=== PATIENT | female | born 1950 | race Caucasian/White ===

== ENCOUNTER 2020-01-06 14:26 | Outpatient (REF) | payer MEDICARE, SELFPAY | END 2020-01-06 14:27 | disposition home or self-care (01) | LOC: HO.HMGCLDS 14:26 | PROVIDERS: PCP Internal Medicine; Visit Provider Internal Medicine | DX: Z20.828 Contact with and (suspected) exposure to other viral communicable diseases (principal) | CPT/HCPCS: 36415; 87635 ==

== ENCOUNTER 2020-08-04 07:38 | Outpatient (REF) | payer MEDICARE, SELFPAY ==
[2020-08-04 11:55] LABS: Alanine Aminotransferase 37 U/L (0-31); Albumin Level 4.1 g/dL (3.5-5.0); Alkaline Phosphatase 110 U/L (39-117); Anion Gap 13 (12-20); Aspartate Amino Transferase 28 U/L (5-31); Bilirubin Direct 0.4 mg/dL (0.0-0.5); Blood Urea Nitrogen 18 mg/dL (9-16); Calcium 9.9 mg/dL (8.4-10.2); Carbon Dioxide 28 mmol/L (22-29); Chloride 107 mmol/L (96-108); Cholesterol 187 mg/dL; Estimated Glomerular Filt Rate > 60; Glucose Fasting 81 mg/dL (60-99); HDL Cholesterol 76 mg/dL; LDL Cholesterol Calculated 92 mg/dl; Potassium 5.1 mmol/L (3.3-5.1); Sodium 143 mmol/L (135-145); Total Protein 6.8 g/dL (6.5-8.0); Triglycerides 95 mg/dL
[2020-08-04 12:04] LABS: TSH reflex Free T4 1.14 uIU/mL (0.32-4.0)
== END 2020-08-04 07:39 | disposition home or self-care (01) ==
LOC: HO.HMGCLDS 07:38
PROVIDERS: PCP Internal Medicine; Visit Provider Internal Medicine
DX: E03.8 Other specified hypothyroidism (principal); E78.9 Disorder of lipoprotein metabolism, unspecified; I10 Essential (primary) hypertension
CPT/HCPCS: 36415; 80048; 80061; 80076; 84443

== ENCOUNTER 2020-08-25 13:12 | Outpatient (REF) | payer MEDICARE, SELFPAY ==
[2020-08-25 14:28] LABS: Anion Gap 14 (12-20); Carbon Dioxide 26 mmol/L (22-29); Chloride 105 mmol/L (96-108); Potassium 4.8 mmol/L (3.3-5.1); Sodium 140 mmol/L (135-145)
== END 2020-08-25 13:13 | disposition home or self-care (01) ==
LOC: HO.HMGCLDS 13:12
PROVIDERS: PCP Internal Medicine; Visit Provider Internal Medicine
DX: E87.5 Hyperkalemia (principal)
CPT/HCPCS: 36415; 80051

== ENCOUNTER 2021-01-06 07:16 | Outpatient (REF) | payer MEDICARE, SELFPAY ==
[2021-01-06 12:01] LABS: Alanine Aminotransferase 49 U/L (0-31); Albumin Level 3.9 g/dL (3.5-5.0); Alkaline Phosphatase 120 U/L (39-117); Anion Gap 11 (12-20); Aspartate Amino Transferase 37 U/L (5-31); Bilirubin Total 0.7 mg/dL (0.0-1.0); Blood Urea Nitrogen 13 mg/dL (9-16); Calcium 9.3 mg/dL (8.4-10.2); Carbon Dioxide 29 mmol/L (22-29); Chloride 108 mmol/L (96-108); Estimated Glomerular Filt Rate > 60; Glucose Random 88 mg/dL (60-115); Potassium 4.5 mmol/L (3.3-5.1); Sodium 143 mmol/L (135-145); Total Protein 6.5 g/dL (6.5-8.0)
== END 2021-01-06 07:17 | disposition home or self-care (01) ==
LOC: HO.HMGCLDS 07:16
PROVIDERS: PCP Internal Medicine; Visit Provider Internal Medicine
DX: E78.9 Disorder of lipoprotein metabolism, unspecified (principal); E03.8 Other specified hypothyroidism; I10 Essential (primary) hypertension
CPT/HCPCS: 36415; 80053

== ENCOUNTER 2021-05-06 07:33 | Outpatient (REF) | payer MEDICARE, SELFPAY ==
[2021-05-06 11:18] LABS: MANUAL DIFF FLAG NO
[2021-05-06 11:30] LABS: Basophils Percent Auto 0.8 % (0-2); Eosinophils Absolute Auto 0.1 X10*3/uL (0.0-0.4); Eosinophils Percent Auto 2.4 % (0-4); Hematocrit 43.9 % (37.0-47.0); Hemoglobin 14.3 g/dl (12.0-16.0); Imm Gran Abs Auto 0.01 X10*3/uL (0.00-0.03); Imm Gran Pct Auto 0.3 % (0.0-0.4); Lymphocytes Absolute Auto 1.1 X10*3/uL (1.2-4.9); Lymphocytes Percent Auto 29.6 % (20-40); Mean Corpuscular HGB Conc 32.6 g/dl (31.0-35.0); Mean Corpuscular Hemoglobin 30.2 pg (27.0-33.0); Mean Corpuscular Volume 92.6 fL (80.0-98.0); Mean Platelet Volume 11.4 fL (9.4-12.3); Monocytes Absolute Auto 0.4 X10*3/uL (0.1-1.2); Monocytes Percent Auto 9.5 % (2-11); Neutrophils Absolute Auto 2.1 x10*3/uL (2.0-8.3); Neutrophils Percent Auto 57.4 % (45-73); Platelet Count 173 X10*3/uL (160-400); Red Blood Count 4.74 X10*6/uL (4.20-5.50); Red Cell Distribution Width 12.4 % (11.0-16.0); White Blood Count 3.7 X10*3/uL (4.8-10.8)
[2021-05-06 11:52] LABS: Alanine Aminotransferase 42 U/L (0-31); Alkaline Phosphatase 122 U/L (39-117); Anion Gap 11 (12-20); Aspartate Amino Transferase 34 U/L (5-31); Bilirubin Total 0.9 mg/dL (0.0-1.0); Blood Urea Nitrogen 15 mg/dL (9-16); Carbon Dioxide 30 mmol/L (22-29); Chloride 108 mmol/L (96-108); Estimated Glomerular Filt Rate > 60; Glucose Random 90 mg/dL (60-115); Potassium 5.1 mmol/L (3.3-5.1); Sodium 144 mmol/L (135-145); Total Protein 6.8 g/dL (6.5-8.0)
== END 2021-05-06 07:34 | disposition home or self-care (01) ==
LOC: HO.HMGCLDS 07:33
PROVIDERS: Visit Provider Internal Medicine
DX: E03.8 Other specified hypothyroidism (principal); I10 Essential (primary) hypertension; E78.9 Disorder of lipoprotein metabolism, unspecified; R79.89 Other specified abnormal findings of blood chemistry
CPT/HCPCS: 36415; 80053; 85025

== ENCOUNTER 2021-06-28 09:53 | Outpatient (REF) | payer MEDICARE, SELFPAY ==
--- NOTE | ~2021-06-28 | XR_ITS ---
EXAMINATION: XR HAND, RIGHT CLINICAL INFORMATION: Right hand contusion COMPARISON: None TECHNIQUE: PA, lateral, and oblique views of the right hand. FINDINGS: Bone alignment is normal. No definite acute fracture or dislocation is seen. There is a well-corticated soft tissue ossification projecting over the dorsal DIP joint of the second finger probably related to old trauma. There is mild arthritis at the DIP joints with small osteophytes. There is mild arthritis at the first FCI joint. There is mild soft tissue swelling over the dorsal DIP joint of the second finger. XR/XR hand RT min 3V IMPRESSION: No definite acute fracture seen. Mild arthritis at the DIP joints and first FCI joint. Well-corticated soft tissue ossification adjacent to the dorsal DIP joint of the second finger, question related to old trauma. Clinical correlation recommended.
== END 2021-06-28 09:54 | disposition home or self-care (01) ==
LOC: HO.HMGCX 09:53
PROVIDERS: Visit Provider Internal Medicine
DX: S60.221A Contusion of right hand, initial encounter (principal)
CPT/HCPCS: 73130

== ENCOUNTER 2021-07-16 10:00 | Outpatient (RCR) | payer MEDICARE, SELFPAY ==
--- NOTE | 2021-06-30 12:53 | MHC.PT.EP ---
[facility] [place] Office [place] Office [place] Office [address] [phone] F: [phone] F: [phone] F: [phone] F: [phone] Physical Therapy Plan of Care Date of Evaluation: Date of Surgery: n/a Diagnosis: Pain in R arm Assessment: Patient is a 70 year old R handed female who presents with s/s consistent with R shoulder pain as a result of falling on [employer]. She is retired but enjoys being active and traveling. Patient past medical history includes HTN. Current impairments include pain, posture, ROM, strength, activity tolerance and functional mobility. Functional limitations include decreased ability to sleep, lift, carry, reach and dress. Patient is motivated with good rehab potential. Skilled PT will address impairments and functional limitations in order to achieve goals. Frequency and Duration: The patient will be seen 2x/week for 5 weeks Short Term Goals: I with HEP - 2 weeks AROM flexion 120, abd 110 - 3 weeks pain with ADLs and sleep 2/10 max - 3 weeks Fdc Goals: undisturbed sleep - 5 weeks AROM flex/abd 130 or more - 5 weeks ER/IR arc 140 - 5 weeks SPADI 30/130 or better - 5 weeks Treatment Plan: Modalities to reduce pain, spasms and effusion. Manual therapy to restore motion and function. Therapeutic exercise to improve strength and flexibility. Neuromuscular re-education for posture and balance. Therapeutic activities to return to functional activities of daily living. Electronically signed by: Willard Reynaga, PT Please sign and return to therapist. Thank you for your referral.
--- NOTE | 2021-07-16 13:49 | MHC.PT.OD ---
[facility] [place] Office [place] Office [place] Office [address] Merlin Bartholomew [address] [phone] F: [phone] F: [phone] F: [phone] F: [phone] Physical Therapy Daily Note Diagnosis: Pain in R arm Date of Surgery: n/a Date of Evaluation: 06/30/21 Date of Treatment: 07/16/21 Treatments to Date: 6 Cancellations to Date: No Shows to Date: Authorized Visits: Insurance End Date: Precautions/ Contraindications:stitch in R finger ([place] fall) Subjective: Pt notes increased pain today, unknown reason why. Pain Score and Location: 8 Objective Flowsheet: Tests & Measures See IE Exercises pulleys flexion and scaption 4 min each wall slides 12x b/l ER with YTB Table slides flex and scaption 15x each(not today) AA ER x 5 reps pendulums 3 min cane ER and flexion 10x10 s/l ER 1# 30x, abd x 20 reps UT stretct h x 2 reps, sh int rot x 20 ylw, rows x 20 reps 15 lbs, biceps x 20 reps 2 lb STM R UT, deltoid, biceps HP to start, CP to finish Modalities Assessment: 07/16/21: pt has been having difficulty achieving any meaningful progress over the course of skilled PT (6 visits so far) due to significant debilitating pain. She has been having difficulty sleeping, and using R are for most all functional activities. She has not progressed as we had hoped. I educated her significant on plan for PT and possibility that more imaging may be needed if no progress is sustained. At this time, I am requesting further imaging as I suspect a significant rotator cuff injury and or labral injury may be at play here. 07/14/21: pt is having a difficult time progressing. she has intermittent sharp pain without warning. ROM has improved but is painful. The pain limits willingness to perform UE activities. If significance of pain does not improve, we will recommend further imaging to promote optimal management of this patient, as skilled PT does not seem to be resulting in meaningful progress. PT Plan: shoulder impingement - rotator cuff injury rehab Short Term Goals: I with HEP - 2 weeks AROM flexion 120, abd 110 - 3 weeks pain with ADLs and sleep 05/13 max - 3 weeks Acid Bleacher Goals: undisturbed sleep - 5 weeks AROM flex/abd 130 or more - 5 weeks ER/IR arc 140 - 5 weeks SPADI 30/130 or better - 5 weeks Electronically signed by: Willard Reynaga PT
--- NOTE | 2021-12-23 09:55 | MHC.PT.DC ---
[facility] [place] Office [place] Office [place] Office [address] Merlin Bartholomew [address] [phone] F: [phone] F: [phone] F: [phone] F: [phone] Physical Therapy Discharge Report Diagnosis: Pain in R arm Date of Surgery: n/a Date of Evaluation: 06/30/21 Date of Discharge: 08/05/21 Treatments to Date: 6 Cancellations to Date: No Shows to Date: Discharge Status: Improved Function Independent with HEP Discharge Summary: 07/16/21: pt has been having difficulty achieving any meaningful progress over the course of skilled PT (6 visits so far) due to significant debilitating pain. She has been having difficulty sleeping, and using R are for most all functional activities. She has not progressed as we had hoped. I educated her significant on plan for PT and possibility that more imaging may be needed if no progress is sustained. At this time, I am requesting further imaging as I suspect a significant rotator cuff injury and or labral injury may be at play here. 07/14/21: pt is having a difficult time progressing. she has intermittent sharp pain without warning. ROM has improved but is painful. The pain limits willingness to perform UE activities. If significance of pain does not improve, we will recommend further imaging to promote optimal management of this patient, as skilled PT does not seem to be resulting in meaningful progress. Electronically signed by: Willard Reynaga, PT Please sign and return to therapist. Thank you for your referral.
== END 2021-12-23 09:56 | disposition home or self-care (01) ==
LOC: HO.PTCHIC 10:00
PROVIDERS: PCP Internal Medicine; Visit Provider Internal Medicine
DX: M79.601 Pain in right arm (principal)
CPT/HCPCS: 97110; 97140; 97161

== ENCOUNTER 2021-12-28 06:51 | Outpatient (REF) | payer MEDICARE, SELFPAY ==
[2021-12-28 12:04] LABS: Alanine Aminotransferase 56 U/L (0-31); Albumin Level 3.9 g/dL (3.5-5.0); Alkaline Phosphatase 118 U/L (39-117); Anion Gap 14 (12-20); Aspartate Amino Transferase 46 U/L (5-31); Bilirubin Total 0.4 mg/dL (0.0-1.0); Blood Urea Nitrogen 15 mg/dL (9-16); Calcium 9.6 mg/dL (8.4-10.2); Carbon Dioxide 27 mmol/L (22-29); Chloride 108 mmol/L (96-108); Cholesterol 164 mg/dL; Estimated Glomerular Filt Rate > 60; Glucose Fasting 97 mg/dL (60-99); HDL Cholesterol 72 mg/dL; LDL Cholesterol Calculated 80 mg/dl; Potassium 5.2 mmol/L (3.3-5.1); Sodium 144 mmol/L (135-145); Total Protein 6.4 g/dL (6.5-8.0); Triglycerides 62 mg/dL
[2021-12-28 12:11] LABS: TSH reflex Free T4 2.03 uIU/mL (0.32-4.0)
== END 2021-12-28 06:52 | disposition home or self-care (01) ==
LOC: HO.HMGCLDS 06:51
PROVIDERS: PCP Internal Medicine; Visit Provider Internal Medicine
DX: E03.8 Other specified hypothyroidism (principal); E78.9 Disorder of lipoprotein metabolism, unspecified; I10 Essential (primary) hypertension; R79.89 Other specified abnormal findings of blood chemistry
CPT/HCPCS: 36415; 80053; 80061; 84443

== ENCOUNTER 2021-12-30 08:00 | Outpatient (RCR) | payer MEDICARE, SELFPAY | END 2022-02-09 10:18 | disposition home or self-care (01) | LOC: HO.PTCHIC 08:00 | PROVIDERS: Visit Provider Orthopaedic Surgery | DX: S46.011D Strain of muscle(s) and tendon(s) of the rotator cuff of right shoulder, subsequent encounter (principal) | CPT/HCPCS: 97110; 97140; 97162 ==

== ENCOUNTER 2022-01-25 08:55 | Outpatient (REF) | payer MEDICARE, SELFPAY ==
[2022-01-25 11:42] LABS: Alanine Aminotransferase 40 U/L (0-31); Albumin Level 4.1 g/dL (3.5-5.0); Alkaline Phosphatase 131 U/L (39-117); Anion Gap 13 (12-20); Aspartate Amino Transferase 32 U/L (5-31); Bilirubin Total 0.7 mg/dL (0.0-1.0); Blood Urea Nitrogen 15 mg/dL (9-16); Calcium 9.9 mg/dL (8.4-10.2); Carbon Dioxide 29 mmol/L (22-29); Chloride 105 mmol/L (96-108); Estimated Glomerular Filt Rate > 60; Glucose Random 107 mg/dL (60-115); Potassium 4.4 mmol/L (3.3-5.1); Sodium 143 mmol/L (135-145)
== END 2022-01-25 08:56 | disposition home or self-care (01) ==
LOC: HO.HMGCLDS 08:55
PROVIDERS: PCP Internal Medicine; Visit Provider Internal Medicine
DX: E87.5 Hyperkalemia (principal); R79.89 Other specified abnormal findings of blood chemistry; I10 Essential (primary) hypertension
CPT/HCPCS: 36415; 80053

== ENCOUNTER 2022-09-07 07:20 | Outpatient (REF) | payer MEDICARE, SELFPAY ==
[2022-09-07 11:11] LABS: MANUAL DIFF FLAG NO
[2022-09-07 11:28] LABS: Basophils Percent Auto 1.1 % (0-2); Eosinophils Absolute Auto 0.1 X10*3/uL (0.0-0.4); Eosinophils Percent Auto 3.6 % (0-4); Hematocrit 43.6 % (37.0-47.0); Hemoglobin 14.3 g/dl (12.0-16.0); Imm Gran Abs Auto 0.01 X10*3/uL (0.00-0.03); Imm Gran Pct Auto 0.4 % (0.0-0.4); Lymphocytes Percent Auto 33.9 % (20-40); Mean Corpuscular HGB Conc 32.8 g/dl (31.0-35.0); Mean Corpuscular Hemoglobin 30.2 pg (27.0-33.0); Mean Corpuscular Volume 92.2 fL (80.0-98.0); Mean Platelet Volume 11.4 fL (9.4-12.3); Monocytes Absolute Auto 0.3 X10*3/uL (0.1-1.2); Monocytes Percent Auto 9.6 % (2-11); Neutrophils Absolute Auto 1.4 x10*3/uL (2.0-8.3); Neutrophils Percent Auto 51.4 % (45-73); Platelet Count 189 X10*3/uL (160-400); Red Blood Count 4.73 X10*6/uL (4.20-5.50); Red Cell Distribution Width 12.6 % (11.0-16.0); White Blood Count 2.8 X10*3/uL (4.8-10.8)
[2022-09-07 12:02] LABS: Alanine Aminotransferase 32 U/L (0-31); Albumin Level 3.9 g/dL (3.5-5.0); Alkaline Phosphatase 114 U/L (39-117); Anion Gap 10 (12-20); Aspartate Amino Transferase 27 U/L (5-31); Blood Urea Nitrogen 15 mg/dL (9-16); Calcium 9.7 mg/dL (8.4-10.2); Carbon Dioxide 29 mmol/L (22-29); Chloride 109 mmol/L (96-108); Cholesterol 172 mg/dL; Estimated Glomerular Filt Rate > 60; Glucose Fasting 90 mg/dL (60-99); HDL Cholesterol 79 mg/dL; LDL Cholesterol Calculated 78 mg/dl; Potassium 4.9 mmol/L (3.3-5.1); Sodium 143 mmol/L (135-145); TSH reflex Free T4 2.22 uIU/mL (0.32-4.0); Total Protein 6.6 g/dL (6.5-8.0); Triglycerides 77 mg/dL
== END 2022-09-07 07:21 | disposition home or self-care (01) ==
LOC: HO.HMGCLDS 07:20
PROVIDERS: PCP Internal Medicine; Visit Provider Internal Medicine
DX: E03.8 Other specified hypothyroidism (principal); I10 Essential (primary) hypertension; E78.9 Disorder of lipoprotein metabolism, unspecified
CPT/HCPCS: 36415; 80053; 80061; 84443; 85025

== ENCOUNTER 2022-10-11 08:38 | Outpatient (AMB) | payer MEDICARE, SELFPAY ==
--- NOTE | 2022-10-11 08:39 | MHC.PC.OV ---
Vital Signs 10/11/22 08:40 Height 5 ft 2 in Weight 184 lb 8 oz BMI 33.7 BP 136/88 Blood Pressure Location Rt brachial Position Sitting Pulse 73 Pulse Source Pulse Oximeter Pulse Oximetry (%) 98 Oxygen Delivery Method Room Air Intake Visit Reasons: 4m follow up labs Allergies penicillin V Allergy (Unknown, Verified 10/11/22 08:41) rash hives swelling Penicillins Allergy (Unknown, Verified 10/11/22 08:41) rash hives swelling Sulfa (Sulfonamide Antibiotics) Allergy (Unknown, Verified 10/11/22 08:41) unknown-childhood Erythromycin Adverse Reaction (Unknown, Uncoded 07/08/22 08:21) GI upset Medication List - Last Reconciled 10/11/22 by Kalin Wyatt MD atorvastatin 20 mg PO BEDTIME 90 days calcium carbonate 600 mg PO DAILY latanoprost 0.005% 1 drp ophthalmic (eye) QPM levothyroxine 75 mcg PO QAM lisinopril 40 mg PO DAILY 90 days timolol 0.5% (Betimol) 1 drp ophthalmic-Right DAILY Tobacco use date assessed: 10/11/22 Fall risk assessment: No Falls in past year Last assessed Fall Risk: 10/11/22 Dental Screening Dental Screen Date: 10/11/22 Did you have a dental visit in the last 12 months?: Yes Did you have a dental problem in the last 6 months where you did not have access to dental care?: No Was dental information given to patient?: No HPI 4m follow up labs HPI Details Patient is 71-year-old female came in today for a follow-up appointment Patient is on atorvastatin 20 mg Levothyroxine 75 mg Lisinopril 40 mg Labs done recently reviewed her liver enzymes are stable TSH is within normal limit blood pressure is stable I have noticed that her white count is reducing it was in 3 range last time and now it is 2.8, discussed with the patient I have placed a referral to Hematology for further evaluation She also have osteoarthritis in her right knee but manageable with Advil as needed COVID vaccine was August 12 Has appointment for Medicare wellness in January, patient comes every 4 months for follow-up appointment. [facility] Medical History Hypertension, essential Lipid disorder Other specified hypothyroidism Surgical History History of appendectomy Family History Father Pancreatic cancer Myocardial infarction Mother Alzheimer's disease Son Obesity Daughter Migraine Maternal Grandmother No problems noted. Maternal Grandfather No problems noted. Paternal Grandfather No problems noted. Paternal Grandmother No problems noted. Sister No problems noted. Social History Housing: House Alcohol intake: current Alcohol intake frequency: a few times a month Alcohol type: wine Patient Tobacco Use Status: Never used Tobacco e-Cigarette/Vaping Use: Never Used Second Hand Smoke Exposure: No service: No Current occupational status: retired Cognitive needs: No Hearing needs: No Vision needs: Yes Questionnaire Thrive Questionnaire Date Thrive assessed: 05/18/21 AUDIT C Alcohol Use Questionnaire (AUDIT-C) 1. How often do you have a drink containing alcohol?: Monthly or less 2. How many drinks containing alcohol do you have on a typical day when you are drinking?: 1 or 2 3. How often do you have six or more drinks on one occasion?: Never Total Score: 1 Score Reviewed/Action Taken: Yes CECELIA-7 AMB Questionnaire CECELIA-7 Date CECELIA - 7 assessed: 05/18/21 Source: Developed by Drs. Arthur Hassan, Nadia Peralta, Mikey Howard and colleagues, with an educational hannah from [employer]. Review of Systems Const Denies chills and Denies fever(s) ENT Denies epistaxis and Denies nasal discharge Card Denies chest pain Resp Denies chest congestion, Denies cough and Denies hemoptysis GI Denies diarrhea and Denies nausea Skin/Breast Denies rash Neuro Reports no additional complaints Psych Reports no additional complaints Endo Reports no additional complaints Physical exam (Primary Care) Vital Signs: Last Vital Signs Pulse 73 10/11/22 08:40 BP 136/88 10/11/22 08:40 Pulse Ox 98 10/11/22 08:40 Oxygen Delivery Method Room Air 10/11/22 08:40 BMI result Body Mass Index 33.7 Tobacco/Smoking Status: Tobacco use Status Tobacco use date assessed 10/11/22 10/11/22 08:44 Patient Tobacco Use Status Never used Tobacco 10/11/22 08:44 e-Cigarette/Vaping Use Never Used 10/11/22 08:44 Thrive Assessment: Date of Thrive Assessment Date Thrive assessed 05/18/21 10/11/22 08:44 Const General: cooperative, comfortable and no acute distress Orientation/consciousness: patient oriented x3 HENMT Head: Yes normocephalic Eyes General: appearance normal, both eyes and all related structures Neck Neck: Yes supple Resp Effort & Inspection: normal respiratory effort, no cough and no stridor Cardio Rhythm: regular rhythm Heart sounds: S1 normal heart sound present and S2 normal heart sound present Skin General skin exam: turgor normal Neuro General: patient oriented x3, tone normal and moves all extremities Extrem Right lower extremity: no edema Left lower extremity: no edema Assessment and Plan Assessment & Plan (1) Hypertension, essential: Code(s): I10 - Essential (primary) hypertension (2) Lipid disorder: Code(s): E78.9 - Disorder of lipoprotein metabolism, unspecified (3) Other specified hypothyroidism: Code(s): E03.8 - Other specified hypothyroidism (4) LFT elevation: Code(s): R79.89 - Other specified abnormal findings of blood chemistry (5) Osteoarthritis of right knee: Code(s): M17.11 - Unilateral primary osteoarthritis, right knee (6) Neutropenia: Code(s): D70.9 - Neutropenia, unspecified Plan Patient is 71-year-old female came in today for a follow-up appointment Patient is on atorvastatin 20 mg Levothyroxine 75 mg Lisinopril 40 mg Labs done recently reviewed her liver enzymes are stable TSH is within normal limit blood pressure is stable I have noticed that her white count is reducing it was in 3 range last time and now it is 2.8, discussed with the patient I have placed a referral to Hematology for further evaluation She also have osteoarthritis in her right knee but manageable with Advil as needed COVID vaccine was August 12 Has appointment for Medicare wellness in January, patient comes every 4 months for follow-up appointment. Orders: Referrals Hematology & Oncology Referral D70.9 - Neutropenia, unspecified Coding Level of Care Code Est Pt Level 4 (32046) Diagnoses Hypertension, essential I10 Lipid disorder E78.9 Other specified hypothyroidism E03.8 LFT elevation R79.89 Osteoarthritis of right knee M17.11 Neutropenia D70.9
[2022-10-11 08:40] VITALS: BP 136/88; PULSE 73; O2SAT 98; BMI 33.7
== END 2022-10-11 09:04 | disposition home or self-care (01) ==
PROVIDERS: Visit Provider Internal Medicine
DX: I10 Essential (primary) hypertension (principal); E03.8 Other specified hypothyroidism; D70.9 Neutropenia, unspecified; E78.9 Disorder of lipoprotein metabolism, unspecified; R79.89 Other specified abnormal findings of blood chemistry; M17.11 Unilateral primary osteoarthritis, right knee
CPT/HCPCS: 99214

== ENCOUNTER → 2022-11-07 08:46 | Outpatient (BNV) | payer MEDICARE, SELFPAY | PROVIDERS: PCP Internal Medicine; Referring Provider Internal Medicine; Visit Provider Internal Medicine Medical Oncology | DX: D70.9 Neutropenia, unspecified (principal) | CPT/HCPCS: 99204; 99213 ==

== ENCOUNTER 2022-12-13 08:05 | Outpatient (AMB) | payer MEDICARE, SELFPAY ==
--- NOTE | 2022-12-13 08:06 | AM.OFFWIN_ITS ---
Intake Vital Signs 12/13/22 08:08 Weight 187 lb BP 120/90 H Blood Pressure Location Lt brachial Position Sitting Pulse 64 Pulse Source Pulse Oximeter Temp 98.2 F Temp Source Temporal Artery Scan Pulse Oximetry (%) 98 Oxygen Delivery Method Room Air Intake Visit Reasons: EP COVID + 12/01 -Ear blockage (masked) Intake Note: Patient here because she was positive for covid and did not really have symptoms and is now testing negative but now has left ear pain. Patient Tobacco Use Status: Never used Tobacco Allergies penicillin V Allergy (Unknown, Verified 12/13/22 08:31) rash hives swelling Penicillins Allergy (Unknown, Verified 12/13/22 08:31) rash hives swelling Sulfa (Sulfonamide Antibiotics) Allergy (Unknown, Verified 12/13/22 08:31) unknown-childhood Erythromycin Adverse Reaction (Unknown, Uncoded 12/13/22 08:31) GI upset Medication List - Last Reconciled 12/13/22 by Benja Mills MD atorvastatin 20 mg PO BEDTIME 90 days calcium carbonate 600 mg PO DAILY latanoprost 0.005% 1 drp ophthalmic (eye) QPM levothyroxine 75 mcg PO QAM lisinopril 40 mg PO DAILY 90 days timolol 0.5% (Betimol) 1 drp ophthalmic-Right DAILY Do you need a note to return to daycare/school/sports/work: No HPI EP COVID + 12/01 -Ear blockage (masked) HPI Details 71-year-old female presents to the [facility] e a sick visit. Patient tested positive for COVID 2 weeks ago. Patient reports she has been having a persistent fullness in the left ear with intermittent pain. Other symptoms of cough, wheezing and sore throat have since resolved. [facility] Medical History Hypertension, essential Lipid disorder Other specified hypothyroidism Surgical History History of appendectomy Family History Father Pancreatic cancer Myocardial infarction Mother Alzheimer's disease Son Obesity Daughter Migraine Maternal Grandmother No problems noted. Maternal Grandfather No problems noted. Paternal Grandfather No problems noted. Paternal Grandmother No problems noted. Sister No problems noted. Social History (Updated 11/07/22 @ 08:51 by Jet Dejesus) Housing: House Alcohol intake: current Alcohol intake frequency: a few times a month Alcohol type: wine Patient Tobacco Use Status: Never used Tobacco e-Cigarette/Vaping Use: Never Used Second Hand Smoke Exposure: No service: No Current occupational status: retired Cognitive needs: No Hearing needs: No Vision needs: Yes Physical Exam Vital Signs: Last Vital Signs Temp 98.2 F 12/13/22 08:08 Pulse 64 12/13/22 08:08 BP 120/90 H 12/13/22 08:08 Pulse Ox 98 12/13/22 08:08 Oxygen Delivery Method Room Air 12/13/22 08:08 Const General: cooperative and healthy appearing Nutritional Appearance: well nourished Orientation/consciousness: patient oriented x3 Limitations: no limitations HEENT Head: Yes normal to inspection Eyes General: appearance normal, both eyes and all related structures Neck Neck: Yes normal visual inspection Chest Chest palpation & inspection: normal palpation of entire chest wall Resp Effort & Inspection: normal respiratory effort Neuro General: patient oriented x3 Assessment & Plan Assessment & Plan (1) Viral upper respiratory tract infection: Code(s): J06.9 - Acute upper respiratory infection, unspecified Plan: Self-limiting illness. No antibiotics needed. Symptoms will resolve on their own. Reassurance Coding Level of Care Code Est Pt Level 3 (67843) Diagnoses Viral upper respiratory tract infection J06.9
[2022-12-13 08:08] VITALS: BP 120/90; PULSE 64; TEMP 36.8; O2SAT 98
== END 2022-12-13 08:57 | disposition home or self-care (01) ==
PROVIDERS: PCP Internal Medicine; Visit Provider Internal Medicine
DX: J06.9 Acute upper respiratory infection, unspecified (principal)
CPT/HCPCS: 99213

== ENCOUNTER 2022-12-28 09:59 | Outpatient (AMB) | payer MEDICARE, SELFPAY ==
[2022-12-28 10:05] VITALS: BP 170/88; BP 172/92; PULSE 68; O2SAT 98
--- NOTE | 2022-12-28 10:05 | MHC.PC.OV ---
Vital Signs 12/28/22 10:05 12/28/22 10:05 12/28/22 11:04 Height 5 ft 3 in BMI Reason not done Patient refused/unable BP 172/92 H 170/88 H 158/80 H Blood Pressure Location Rt brachial Lt brachial Position Sitting Sitting Pulse 68 Pulse Source Pulse Oximeter Pulse Oximetry (%) 98 Oxygen Delivery Method Room Air Intake Visit Reasons: Ear Blockage Allergies penicillin V Allergy (Unknown, Verified 12/28/22 10:05) rash hives swelling Penicillins Allergy (Unknown, Verified 12/28/22 10:05) rash hives swelling Sulfa (Sulfonamide Antibiotics) Allergy (Unknown, Verified 12/28/22 10:05) unknown-childhood Erythromycin Adverse Reaction (Unknown, Uncoded 12/13/22 08:31) GI upset Medication List - Last Reconciled 12/28/22 by Kalin Wyatt MD atorvastatin 20 mg PO BEDTIME 90 days calcium carbonate 600 mg PO DAILY latanoprost 0.005% 1 drp ophthalmic (eye) QPM levothyroxine 75 mcg PO QAM lisinopril 40 mg PO DAILY 90 days timolol 0.5% (Betimol) 1 drp ophthalmic-Right DAILY Tobacco use date assessed: 12/28/22 Fall risk assessment: No Falls in past year Last assessed Fall Risk: 12/28/22 Dental Screening Dental Screen Date: 12/28/22 Did you have a dental visit in the last 12 months?: Yes Did you have a dental problem in the last 6 months where you did not have access to dental care?: No Was dental information given to patient?: Patient has dentist HPI Ear Blockage HPI Details Patient is 72-year-old female came in today to be evaluated for feeling of blockage in left ear Patient developed COVID infection early this month she was evaluated in walk-in clinic on December 13 for similar problem But no medication was given. She is feeling fine otherwise and is walking 3 miles every day. Her blood pressure is elevated I would note is 170/88 Currently patient is on lisinopril 40 mg, I have sent amlodipine 5 mg she is to start taking that if her blood pressure continued to be high. I would recommend she start monitoring her blood pressure at home. Meanwhile she is to take Claritin-D for 7 days to see if it helps with her ear blockage On examination her ear exam is benign. There is no signs of inflammation there is no wax in the ear. Her other medications are atorvastatin 20 mg and levothyroxine 75 mg for hypothyroidism Patient has appointment with me in February she is to do labs fasting before she comes. Past family history and social history reviewed [facility] Medical History Hypertension, essential Lipid disorder Other specified hypothyroidism Surgical History History of appendectomy Family History Father Pancreatic cancer Myocardial infarction Mother Alzheimer's disease Son Obesity Daughter Migraine Maternal Grandmother No problems noted. Maternal Grandfather No problems noted. Paternal Grandfather No problems noted. Paternal Grandmother No problems noted. Sister No problems noted. Social History (Updated 11/07/22 @ 08:51 by Jet Dejesus) Housing: House Alcohol intake: current Alcohol intake frequency: a few times a month Alcohol type: wine Patient Tobacco Use Status: Never used Tobacco e-Cigarette/Vaping Use: Never Used Second Hand Smoke Exposure: No service: No Current occupational status: retired Cognitive needs: No Hearing needs: No Vision needs: Yes Questionnaire Thrive Questionnaire Date Thrive assessed: 05/18/21 AUDIT C Alcohol Use Questionnaire (AUDIT-C) 1. How often do you have a drink containing alcohol?: Never 3. How often do you have six or more drinks on one occasion?: Never Total Score: 0 Score Reviewed/Action Taken: Yes CECELIA-7 AMB Questionnaire CECELIA-7 Date CECELIA - 7 assessed: 05/18/21 Source: Developed by Drs. Arthur Hassan, Nadia Peralta, Mikey Howard and colleagues, with an educational hannah from [employer]. Review of Systems Const Denies chills and Denies fever(s) ENT Denies epistaxis and Denies nasal discharge Card Denies chest pain Resp Denies chest congestion, Denies cough and Denies hemoptysis GI Denies diarrhea and Denies nausea Skin/Breast Denies rash Neuro Reports no additional complaints Psych Reports no additional complaints Endo Reports no additional complaints Physical exam (Primary Care) Vital Signs: Last Vital Signs Pulse 68 12/28/22 10:05 BP 170/88 H 12/28/22 10:05 Pulse Ox 98 12/28/22 10:05 Oxygen Delivery Method Room Air 12/28/22 10:05 Tobacco/Smoking Status: Tobacco use Status Tobacco use date assessed 12/28/22 12/28/22 10:07 Patient Tobacco Use Status Never used Tobacco 12/28/22 10:07 e-Cigarette/Vaping Use Never Used 12/28/22 10:07 Thrive Assessment: Date of Thrive Assessment Date Thrive assessed 05/18/21 12/28/22 10:07 Const General: cooperative, comfortable and no acute distress Orientation/consciousness: patient oriented x3 HENMT Other: Both ears within normal limit light reflex intact no signs of infection inflammation Head: Yes normocephalic Eyes General: appearance normal, both eyes and all related structures Neck Neck: Yes supple Resp Effort & Inspection: normal respiratory effort, no cough and no stridor Cardio Rhythm: regular rhythm Heart sounds: S1 normal heart sound present and S2 normal heart sound present Skin General skin exam: turgor normal Neuro General: patient oriented x3, tone normal and moves all extremities Extrem Right lower extremity: no edema Left lower extremity: no edema Assessment and Plan Assessment & Plan (1) Hypertension, essential: Code(s): I10 - Essential (primary) hypertension (2) Lipid disorder: Code(s): E78.9 - Disorder of lipoprotein metabolism, unspecified (3) Other specified hypothyroidism: Code(s): E03.8 - Other specified hypothyroidism (4) LFT elevation: Code(s): R79.89 - Other specified abnormal findings of blood chemistry (5) Neutropenia: Code(s): D70.9 - Neutropenia, unspecified Qualifiers: Neutropenia type: other Qualified Code(s): D70.8 - Other neutropenia (6) Post-COVID syndrome: Code(s): U09.9 - Post COVID-19 condition, unspecified Plan Patient is 72-year-old female came in today to be evaluated for feeling of blockage in left ear Patient developed COVID infection early this month she was evaluated in walk-in clinic on December 13 for similar problem But no medication was given. She is feeling fine otherwise and is walking 3 miles every day. Her blood pressure is elevated I would note is 170/88 Currently patient is on lisinopril 40 mg, I have sent amlodipine 5 mg she is to start taking that if her blood pressure continued to be high. I would recommend she start monitoring her blood pressure at home. Meanwhile she is to take Claritin-D for 7 days to see if it helps with her ear blockage On examination her ear exam is benign. There is no signs of inflammation there is no wax in the ear. Her other medications are atorvastatin 20 mg and levothyroxine 75 mg for hypothyroidism Neutropenia: Patient is seeing hematology for the management. Patient has appointment with me in February she is to do labs fasting before she comes. Orders: Orders Complete Blood Count Auto Diff Today D70.9 - Neutropenia, unspecified, E03.8 - Other specified hypothyroidism, E78.9 - Disorder of lipoprotein metabolism, unspecified, I10 - Essential (primary) hypertension, R79.89 - Other specified abnormal findings of blood chemistry TSH reflex Free T4 Today D70.9 - Neutropenia, unspecified, E03.8 - Other specified hypothyroidism, E78.9 - Disorder of lipoprotein metabolism, unspecified, I10 - Essential (primary) hypertension, R79.89 - Other specified abnormal findings of blood chemistry Comprehensive [place]. Panel Fast Today D70.9 - Neutropenia, unspecified, E03.8 - Other specified hypothyroidism, E78.9 - Disorder of lipoprotein metabolism, unspecified, I10 - Essential (primary) hypertension, R79.89 - Other specified abnormal findings of blood chemistry Lipid Panel Today D70.9 - Neutropenia, unspecified, E03.8 - Other specified hypothyroidism, E78.9 - Disorder of lipoprotein metabolism, unspecified, I10 - Essential (primary) hypertension, R79.89 - Other specified abnormal findings of blood chemistry Medications: New amlodipine 5 mg PO DAILY 30 tabs 0RF Coding Level of Care Code Est Pt Level 4 (52660) Diagnoses Hypertension, essential I10 Lipid disorder E78.9 Other specified hypothyroidism E03.8 LFT elevation R79.89 Other neutropenia D70.8 Neutropenia type: other Post-COVID syndrome U09.9
[2022-12-28 11:04] VITALS: BP 158/80
== END 2022-12-28 12:08 | disposition home or self-care (01) ==
PROVIDERS: PCP Internal Medicine; Visit Provider Internal Medicine
DX: I10 Essential (primary) hypertension (principal); E03.8 Other specified hypothyroidism; D70.8 Other neutropenia; E78.9 Disorder of lipoprotein metabolism, unspecified; R79.89 Other specified abnormal findings of blood chemistry; U09.9 Post COVID-19 condition, unspecified
CPT/HCPCS: 99214

== ENCOUNTER 2023-01-26 11:06 | Outpatient (AMB) | payer MEDICARE, SELFPAY ==
[2023-01-26 11:24] VITALS: BP 120/72; PULSE 66; TEMP 36.6; O2SAT 96; BMI 32.8
--- NOTE | 2023-01-26 11:24 | MHC.OFFWIV ---
Intake Vital Signs 01/26/23 11:24 Height 5 ft 3 in Weight 185 lb BMI 32.8 BP 120/72 Blood Pressure Location Lt brachial Position Sitting Pulse 66 Pulse Source Pulse Oximeter Temp 97.8 F Temp Source Temporal Artery Scan Pulse Oximetry (%) 96 Oxygen Delivery Method Room Air Intake Visit Reasons: EP, left ear pain not getting better Intake Note: pt is here today for left ear pain Patient Tobacco Use Status: Never used Tobacco Allergies penicillin V Allergy (Unknown, Verified 01/26/23 11:25) rash hives swelling Penicillins Allergy (Unknown, Verified 01/26/23 11:25) rash hives swelling Sulfa (Sulfonamide Antibiotics) Allergy (Unknown, Verified 01/26/23 11:25) unknown-childhood Erythromycin Adverse Reaction (Unknown, Uncoded 01/26/23 11:25) GI upset Do you need a note to return to daycare/school/sports/work: Yes HPI HPI Comments History of Present Illness Details 72-year-old female who presents with middle ear pain. Patient has been dealing with a ear effusion for several months now. She has tried Claritin-D without much success. [facility] Medical History Hypertension, essential Lipid disorder Other specified hypothyroidism Surgical History History of appendectomy Family History Father Pancreatic cancer Myocardial infarction Mother Alzheimer's disease Son Obesity Daughter Migraine Maternal Grandmother No problems noted. Maternal Grandfather No problems noted. Paternal Grandfather No problems noted. Paternal Grandmother No problems noted. Sister No problems noted. Social History (Updated 11/07/22 @ 08:51 by Jet Dejesus) Housing: House Alcohol intake: current Alcohol intake frequency: a few times a month Alcohol type: wine Patient Tobacco Use Status: Never used Tobacco e-Cigarette/Vaping Use: Never Used Second Hand Smoke Exposure: No service: No Current occupational status: retired Cognitive needs: No Hearing needs: No Vision needs: Yes Review of Systems ENT Reports otalgia Physical Exam Vital Signs: Last Vital Signs Temp 97.8 F 01/26/23 11:24 Pulse 66 01/26/23 11:24 BP 120/72 10/26/23 11:24 Pulse Ox 96 01/26/23 11:24 Oxygen Delivery Method Room Air 01/26/23 11:24 BMI result Body Mass Index 32.8 Const General: cooperative, healthy appearing, no acute distress and alert Orientation/consciousness: patient oriented x3 Limitations: no limitations HEENT Other: Left ear with effusion no signs of infection Head: Yes normal to inspection Ears: hearing grossly normal bilaterally General nose exam: Normal external nose present Resp Effort & Inspection: normal respiratory effort and able to speak in complete sentences Cardio Rate: regular rate Skin General skin exam: no rashes or lesions noted Neuro General: patient oriented x3 Extrem General: Yes normal to inspection Assessment & Plan Assessment & Plan (1) Eustachian tube dysfunction: Code(s): H69.90 - Unspecified Eustachian tube disorder, unspecified ear Qualifiers: Laterality: left Qualified Code(s): H69.92 - Unspecified Eustachian tube disorder, left ear Plan: VSS. Exam notable for effusion left ear. Recommend symptomatic treatment with Zyrtec and prednisone as well as eustachian tube insufflation maneuvers. If these do not work recommended following up with ENT Discharge instructions, follow up and treatment are discussed with patient in my usual fashion. Alternatives in treatment are also discussed. The patient will return for worsening symptoms or as needed. Advised that any labs/imaging ordered will be followed up on and contact made if further treatment needed. Counseled that patient's condition may require further evaluation and/or treatment. Symptoms of concern for worsening disorder discussed in detail in my customary manner. Patient does verbalize understanding of the plan, there are no apparent barriers to communication. The patient is given the opportunity to ask questions and have them answered to his/her satisfaction Medications: New prednisone 50 mg PO DAILY 5 days 5 tabs 0RF Coding Level of Care Code Est Pt Level 3 (41563) Diagnoses Dysfunction of left eustachian tube H69.92 Laterality: left
== END 2023-01-26 12:14 | disposition home or self-care (01) ==
PROVIDERS: PCP Internal Medicine; Visit Provider Physician Assistant
DX: H69.92 Unspecified Eustachian tube disorder, left ear (principal)
CPT/HCPCS: 99213

== ENCOUNTER 2023-01-27 07:10 | Outpatient (REF) | payer MEDICARE, SELFPAY ==
[2023-01-27 11:30] LABS: MANUAL DIFF FLAG NO
[2023-01-27 11:58] LABS: Basophils Percent Auto 1.1 % (0-2); Eosinophils Absolute Auto 0.1 X10*3/uL (0.0-0.4); Eosinophils Percent Auto 2.8 % (0-4); Hematocrit 42.3 % (37.0-47.0); Hemoglobin 13.9 g/dl (12.0-16.0); Imm Gran Abs Auto 0.01 X10*3/uL (0.00-0.03); Imm Gran Pct Auto 0.3 % (0.0-0.4); Lymphocytes Absolute Auto 1.1 X10*3/uL (1.2-4.9); Lymphocytes Percent Auto 30.8 % (20-40); Mean Corpuscular HGB Conc 32.9 g/dl (31.0-35.0); Mean Corpuscular Hemoglobin 30.4 pg (27.0-33.0); Mean Corpuscular Volume 92.6 fL (80.0-98.0); Mean Platelet Volume 11.2 fL (9.4-12.3); Monocytes Absolute Auto 0.3 X10*3/uL (0.1-1.2); Monocytes Percent Auto 9.1 % (2-11); Neutrophils Percent Auto 55.9 % (45-73); Platelet Count 184 X10*3/uL (160-400); Red Blood Count 4.57 X10*6/uL (4.20-5.50); Red Cell Distribution Width 12.5 % (11.0-16.0); White Blood Count 3.5 X10*3/uL (4.8-10.8)
[2023-01-27 12:28] LABS: Alanine Aminotransferase 35 U/L (0-31); Albumin Level 3.9 g/dL (3.5-5.0); Alkaline Phosphatase 104 U/L (39-117); Anion Gap 13 (12-20); Aspartate Amino Transferase 32 U/L (5-31); Bilirubin Total 0.8 mg/dL (0.0-1.0); Blood Urea Nitrogen 18 mg/dL (9-16); Calcium 9.9 mg/dL (8.4-10.2); Carbon Dioxide 26 mmol/L (22-29); Chloride 107 mmol/L (96-108); Cholesterol 161 mg/dL (<200); Estimated Glomerular Filt Rate > 60; Glucose Fasting 89 mg/dL (60-99); HDL Cholesterol 74 mg/dL (>40); LDL Cholesterol Calculated 72 mg/dL (<100); Potassium 4.8 mmol/L (3.3-5.1); Sodium 141 mmol/L (135-145); TSH reflex Free T4 2.09 uIU/mL (0.32-4.0); Total Protein 6.9 g/dL (6.5-8.0); Triglycerides 75 mg/dL (<150)
== END 2023-01-27 07:11 | disposition home or self-care (01) ==
LOC: HO.HMGCLDS 07:10
PROVIDERS: Absent Provider Internal Medicine Medical Oncology; PCP Internal Medicine; Visit Provider Internal Medicine
DX: I10 Essential (primary) hypertension (principal); E78.9 Disorder of lipoprotein metabolism, unspecified; E03.8 Other specified hypothyroidism; R79.89 Other specified abnormal findings of blood chemistry; D70.9 Neutropenia, unspecified
CPT/HCPCS: 36415; 80053; 80061; 84443; 85025

== ENCOUNTER 2023-02-01 12:41 | Outpatient (AMB) | payer MEDICARE, SELFPAY ==
--- NOTE | 2023-02-01 12:44 | MHC.OFFVIS ---
Intake Vital Signs 02/01/23 12:46 Height 5 ft 3 in Weight 186 lb 8.177 oz BMI 33.0 BP 132/76 Blood Pressure Location Rt brachial Position Sitting Pulse 65 Pulse Source Pulse Oximeter Temp 97.4 F Temp Source Skin Pulse Oximetry (%) 98 Intake Visit Reasons: + EVER Intake Note: New pt presents today for consult. Referred by Dr Frey for +EVER Gas Manager Required: No Accompanied by: Self / Same As Patient Allergies penicillin V Allergy (Unknown, Verified 02/01/23 12:54) rash hives swelling Penicillins Allergy (Unknown, Verified 02/01/23 12:54) rash hives swelling Sulfa (Sulfonamide Antibiotics) Allergy (Unknown, Verified 02/01/23 12:54) unknown-childhood Erythromycin Adverse Reaction (Unknown, Uncoded 02/01/23 12:54) GI upset Medication List - Last Reconciled 02/01/23 by Alisson Jones MD amlodipine 5 mg PO DAILY PRN atorvastatin 20 mg PO BEDTIME 90 days calcium carbonate 600 mg PO DAILY latanoprost 0.005% 1 drp ophthalmic (eye) QPM levothyroxine 75 mcg PO QAM lisinopril 40 mg PO DAILY 90 days timolol maleate 0.5% drps ophthalmic (eye) HPI HPI Comments History of Present Illness Details This is a 72-year-old female who is referred by Dr. Frey for evaluation of a positive EVER. She was referred to Dr. Frey for evaluation of leukopenia. Patient is unaware of any family history of an autoimmune rheumatic disease. She denies any fevers, weight loss, skin rashes. States that she gets bilateral knee pain, worse on the right. Worse with walking. Occasionally she would take Motrin. With relief. She denies any history of DVT/PE. Denies sicca symptoms. Denies Raynaud's. Recently she has been having left ear fullness. She went to 3 different walk-in clinics. She was prescribed different medications including prednisone, Zyrtec and Claritin. All without relief. [facility] Medical History (Updated 02/01/23 @ 13:27 by Alisson Jones MD) Lipid disorder Hypertension, essential Other specified hypothyroidism Surgical History History of appendectomy Family History Father Pancreatic cancer Myocardial infarction Mother Alzheimer's disease Son Obesity Daughter Migraine Maternal Grandmother No problems noted. Maternal Grandfather No problems noted. Paternal Grandfather No problems noted. Paternal Grandmother No problems noted. Sister No problems noted. 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 Cognitive needs: No Hearing needs: No Vision needs: Yes Female Reproductive History Menstrual Total pregnancies: 2 Number of Living Children: 0 Review of Systems Const Denies fatigue, Denies fever(s) and Denies weight loss Eyes Denies dry eyes ENT Denies dry mouth and Reports otalgia Musc Reports arthralgias and Denies joint swelling Skin/Breast Denies rash Endo Denies fatigue Physical Exam Vital Signs: Last Vital Signs Temp 97.4 F 02/01/23 12:46 Pulse 65 02/01/23 12:46 BP 132/76 02/01/23 12:46 Pulse Ox 98 02/01/23 12:46 BMI result Body Mass Index 33.0 Const General: cooperative, healthy appearing and comfortable Nutritional Appearance: obese Orientation/consciousness: patient oriented x3 Limitations: no limitations HEENT Head: Yes normocephalic and Yes atraumatic Resp Effort & Inspection: normal respiratory effort and able to speak in complete sentences Auscultation: clear to auscultation bilaterally Cardio Rate: regular rate Rhythm: regular rhythm GI Inspection: No distended Palpation (GI): Soft to palpation Skin General skin exam: no rashes or lesions noted Neuro General: patient oriented x3 Extrem Other: Osteoarthritic changes of both hands with no active synovitis Normal nailfold capillaroscopy Assessment & Plan Assessment & Plan (1) EVER positive: Code(s): R76.8 - Other specified abnormal immunological findings in serum Plan: This is a 72-year-old female who was referred by Dr. rFey for evaluation of a positive EVER 1-12 80 mitotic spindle pattern and 1-640 fine speckled pattern. This was in the context of chronic leukopenia. Patient also has history of transaminitis chronically. States that she had a liver ultrasound years ago which showed fatty liver. Upon evaluation there are no obvious symptoms of an autoimmune rheumatic disease, however Given significantly elevated EVER, chronic leukopenia and transaminitis. I suggested ordering comprehensive serology to screen for underlying autoimmune disease such as SLE, Sjogren's, autoimmune liver disease and autoimmune thyroid disease. Patient states that she feels well right now and will think about getting those labs done. I asked patient to make a follow-up visit if she decides to get the blood work done Plan I spent 46 minutes reviewing patient's chart, evaluating patient, ordering diagnostic workup, counseling patient and documenting in the chart Orders: Orders Comprehensive Met. Panel Today M32.9 - Systemic lupus erythematosus, unspecified Erythrocyte Sedimentation Rate Today M32.9 - Systemic lupus erythematosus, unspecified Anti Extractable Nuclear Ag Today M32.9 - Systemic lupus erythematosus, unspecified Complement C3 Today M32.9 - Systemic lupus erythematosus, unspecified Complement C4 Today M32.9 - Systemic lupus erythematosus, unspecified Protein Creatinine Ratio, Ur Today M32.9 - Systemic lupus erythematosus, unspecified Cyclic Citrullinated Peptide Today M25.511 - Pain in right shoulder Liver Kidney Microsomal Ab Today R79.89 - Other specified abnormal findings of blood chemistry Mitochondrial Antibody Today R79.89 - Other specified abnormal findings of blood chemistry Smooth Muscle Antibody Today R79.89 - Other specified abnormal findings of blood chemistry Thyroglobulin Antibodies Today E03.9 - Hypothyroidism, unspecified Complete Blood Count Auto Diff Today M32.9 - Systemic lupus erythematosus, unspecified C Reactive Protein Today M32.9 - Systemic lupus erythematosus, unspecified Anti DNA DS Antibody Today M32.9 - Systemic lupus erythematosus, unspecified Sjogren's Antibodies Today M32.9 - Systemic lupus erythematosus, unspecified UA w Microscopic Today M32.9 - Systemic lupus erythematosus, unspecified Thyroid Peroxidase Antibodies Today E03.9 - Hypothyroidism, unspecified Coding Level of Care Code New Pt Level 4 (06102) Diagnoses EVER positive R76.8
[2023-02-01 12:46] VITALS: BP 132/76; PULSE 65; TEMP 36.3; O2SAT 98; BMI 33.0
== END 2023-02-01 13:23 | disposition home or self-care (01) ==
PROVIDERS: PCP Internal Medicine; Referring Provider Internal Medicine Medical Oncology; Visit Provider Student in an Organized Health Care Education/Training Program
DX: R76.8 Other specified abnormal immunological findings in serum (principal)
CPT/HCPCS: 99204

== ENCOUNTER → 2023-02-01 12:41 | Outpatient (BNVA) | payer MEDICARE, SELFPAY | PROVIDERS: PCP Internal Medicine; Referring Provider Internal Medicine Medical Oncology; Visit Provider Student in an Organized Health Care Education/Training Program | DX: R76.8 Other specified abnormal immunological findings in serum (principal); D72.819 Decreased white blood cell count, unspecified; R74.01 Elevation of levels of liver transaminase levels | CPT/HCPCS: 99202 ==

== ENCOUNTER 2023-02-17 09:03 | Outpatient (AMB) | payer MEDICARE, SELFPAY ==
[2023-02-17 09:13] VITALS: BP 128/68; PULSE 72; O2SAT 97; BMI 32.7
--- NOTE | 2023-02-17 09:13 | A.OFFPC_ITS ---
Vital Signs 02/17/23 09:13 Height 5 ft 3 in Weight 184 lb 8 oz BMI 32.7 BP 128/68 Blood Pressure Location Lt brachial Position Sitting Pulse 72 Pulse Source Pulse Oximeter Pulse Oximetry (%) 97 Oxygen Delivery Method Room Air Intake Visit Reasons: follow up resched per pt Allergies penicillin V Allergy (Unknown, Verified 02/17/23 09:13) rash hives swelling Penicillins Allergy (Unknown, Verified 02/17/23 09:13) rash hives swelling Sulfa (Sulfonamide Antibiotics) Allergy (Unknown, Verified 02/17/23 09:13) unknown-childhood Erythromycin Adverse Reaction (Unknown, Uncoded 02/06/23 09:17) GI upset Medication List - Last Reconciled 02/17/23 by Kalin Wyatt MD atorvastatin 20 mg PO BEDTIME 90 days calcium carbonate 600 mg PO DAILY latanoprost 0.005% 1 drp ophthalmic (eye) QPM levothyroxine 75 mcg PO QAM lisinopril 40 mg PO DAILY 90 days timolol maleate 0.5% 0.5 drps ophthalmic (eye) DAILY Tobacco use date assessed: 02/17/23 Fall risk assessment: No Falls in past year Last assessed Fall Risk: 02/17/23 Dental Screening Dental Screen Date: 02/17/23 Did you have a dental visit in the last 12 months?: Yes Did you have a dental problem in the last 6 months where you did not have access to dental care?: No Was dental information given to patient?: Patient has dentist HPI follow up resched per pt HPI Details Patient is 72-year-old female came in today for her regular follow-up appointment Her left ear has gotten slightly better but still feels blocked She has been evaluated by ENT specialist and CTA was ordered Patient says that she had the imaging done already at [facility], however she has not had follow-up appointment with the ENT since She has appointment in early March. Her ear symptoms developed after she has had COVID infection Patient was found to have neutropenia, she has been evaluated by Hematology More labs were done through hematology, and patient came out positive for antinuclear antibody She was referred to rheumatology from there and more labs were ordered which patient has not done However she has no other symptoms suggestive of any autoimmune disorder Hypertension: Patient is on lisinopril 40 mg her blood pressure has been running fine at home since she has stopped taking caffeine Her other medications are atorvastatin 20 mg for lipid control and levothyroxine 75 mg for hypothyroidism BMI is elevated at 32.7 patient is very active however having difficulty losing weight [facility] Medical History Lipid disorder Hypertension, essential Other specified hypothyroidism Surgical History History of appendectomy Family History Father Pancreatic cancer Myocardial infarction Mother Alzheimer's disease Son Obesity Daughter Migraine Maternal Grandmother No problems noted. Maternal Grandfather No problems noted. Paternal Grandfather No problems noted. Paternal Grandmother No problems noted. Sister No problems noted. 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 1. Little interest or pleasure in doing things: not at all 2. Feeling down, depressed, or hopeless: not at all 3. Trouble falling or staying asleep, or sleeping too much: not at all 4. Feeling tired or having little energy: not at all 5. Poor appetite or overeating: not at all 6. Feeling bad about yourself - or that you are a failure or have let yourself or your family down: not at all 7. Trouble concentrating on things, such as reading the newspaper or watching television: not at all 8. Moving or speaking so slowly that other people could have noticed. Or the opposite - being so fidgety or restless that you have been moving around a lot more than usual: not at all 9. Thoughts that you would be better off or of hurting yourself in some way: not at all Total score: 0 Depression Screening Interpretation: Negative Depression Screening Done: Yes 53250 - PHQ-9 Billing: Yes Source: Developed by Drs. Arthur Hassan, Nadia Peralta, Mikey Howard and colleagues, with an educational hannah from [employer]. Thrive Questionnaire Date Thrive assessed: 05/18/21 AUDIT C Alcohol Use Questionnaire (AUDIT-C) 1. How often do you have a drink containing alcohol?: Never 3. How often do you have six or more drinks on one occasion?: Never Total Score: 0 Score Reviewed/Action Taken: Yes CECELIA-7 AMB Questionnaire CECELIA-7 Date CECELIA - 7 assessed: 02/17/23 Feeling nervous, anxious, or on edge: 1 = Several days Not being able to stop or control worryin = Not at all Worrying too much about different things: 0 = Not at all Trouble relaxin = Not at all Being so restless that it is hard to sit still: 0 = Not at all Becoming easily annoyed or irritable: 0 = Not at all Feeling afraid as if something awful might happen: 1 = Several days Total CECELIA-7 score (0-4 normal; 5-9 mild; 10-14 moderate; 15-21 severe): 2 Source: Developed by Drs. Arthur Hassan, Nadia Peralta, Mikey Howard and colleagues, with an educational hannah from [employer]. CECELIA-7 Assessment Billing CECELIA-7 Assessment Tool: CECELIA-7 Assessment 59275 Review of Systems Const Denies chills and Denies fever(s) ENT Denies epistaxis and Denies nasal discharge Card Denies chest pain Resp Denies chest congestion, Denies cough and Denies hemoptysis GI Denies diarrhea and Denies nausea Skin/Breast Denies rash Neuro Reports no additional complaints Psych Reports no additional complaints Endo Reports no additional complaints Physical exam (Primary Care) Vital Signs: Last Vital Signs Pulse 72 02/17/23 09:13 BP 128/68 02/17/23 09:13 Pulse Ox 97 02/17/23 09:13 Oxygen Delivery Method Room Air 02/17/23 09:13 BMI result Body Mass Index 32.7 Tobacco/Smoking Status: Tobacco use Status Tobacco use date assessed 02/17/23 02/17/23 09:14 Patient Tobacco Use Status Never used Tobacco 02/17/23 09:14 e-Cigarette/Vaping Use Never Used 02/17/23 09:14 PHQ-9: PHQ-9 Score PHQ-9: Total score 0 02/17/23 09:39 Depression Screening Interpretation: Negative Thrive Assessment: Date of Thrive Assessment Date Thrive assessed 05/18/21 02/17/23 09:14 Const General: cooperative, comfortable and no acute distress Orientation/consciousness: patient oriented x3 HENMT Head: Yes normocephalic Eyes General: appearance normal, both eyes and all related structures Neck Neck: Yes supple Resp Effort & Inspection: normal respiratory effort, no cough and no stridor Cardio Rhythm: regular rhythm Heart sounds: S1 normal heart sound present and S2 normal heart sound present Skin General skin exam: turgor normal Neuro General: patient oriented x3, tone normal and moves all extremities Extrem Right lower extremity: no edema Left lower extremity: no edema Assessment and Plan Assessment & Plan (1) Hypertension, essential: Code(s): I10 - Essential (primary) hypertension (2) Neutropenia: Code(s): D70.9 - Neutropenia, unspecified Qualifiers: Neutropenia type: other Qualified Code(s): D70.8 - Other neutropenia (3) Obesity due to excess calories: Code(s): E66.09 - Other obesity due to excess calories Qualifiers: Obesity classification: adult class 1 (BMI 30 - 34.9) Serious obesity comorbidity presence: with serious comorbidity Body mass index: BMI 32.0-32.9 Qualified Code(s): E66.09 - Other obesity due to excess calories; Z68.32 - Body mass index [BMI] 32.0-32.9, adult (4) EVER positive: Code(s): R76.8 - Other specified abnormal immunological findings in serum (5) Lipid disorder: Code(s): E78.9 - Disorder of lipoprotein metabolism, unspecified (6) Other specified hypothyroidism: Code(s): E03.8 - Other specified hypothyroidism (7) LFT elevation: Code(s): R79.89 - Other specified abnormal findings of blood chemistry (8) Post-COVID syndrome: Code(s): U09.9 - Post COVID-19 condition, unspecified Plan Patient is 72-year-old female came in today for her regular follow-up appointment Her left ear has gotten slightly better but still feels blocked She has been evaluated by ENT specialist and CTA was ordered Patient says that she had the imaging done already at [facility], however she has not had follow-up appointment with the ENT since She has appointment in early March. Her ear symptoms developed after she has had COVID infection Patient was found to have neutropenia, she has been evaluated by Hematology More labs were done through hematology, and patient came out positive for antinuclear antibody She was referred to rheumatology from there and more labs were ordered which patient has not done However she has no other symptoms suggestive of any autoimmune disorder Hypertension: Patient is on lisinopril 40 mg her blood pressure has been running fine at home since she has stopped taking caffeine Her other medications are atorvastatin 20 mg for lipid control and levothyroxine 75 mg for hypothyroidism BMI is elevated at 32.7 patient is very active however having difficulty losing weight Coding Level of Care Code Est Pt Level 4 (56524) Diagnoses Hypertension, essential I10 Other neutropenia D70.8 Neutropenia type: other Class 1 obesity due to excess calories with serious comorbidity and body mass index (BMI) of 32.0 to 32.9 in adult E66.09; Z68.32 Obesity classification: adult class 1 (BMI 30 - 34.9) Serious obesity comorbidity presence: with serious comorbidity Body mass index: BMI 32.0-32.9 EVER positive R76.8 Lipid disorder E78.9 Other specified hypothyroidism E03.8 LFT elevation R79.89 Post-COVID syndrome U09.9 Additional Codes CECELIA-7 Assessment Billing - CECELIA-7 Assessment Tool: CECELIA-7 Assessment 70625 ([id number])
== END 2023-02-17 09:33 | disposition home or self-care (01) ==
PROVIDERS: PCP Internal Medicine; Visit Provider Internal Medicine
DX: I10 Essential (primary) hypertension (principal); D70.8 Other neutropenia; E66.09 Other obesity due to excess calories; Z68.32 Body mass index [BMI] 32.0-32.9, adult; R76.8 Other specified abnormal immunological findings in serum; E78.9 Disorder of lipoprotein metabolism, unspecified; E03.8 Other specified hypothyroidism; R79.89 Other specified abnormal findings of blood chemistry; U09.9 Post COVID-19 condition, unspecified
CPT/HCPCS: 99214

== ENCOUNTER 2023-03-22 13:21 | Outpatient (AMB) | payer MEDICARE, SELFPAY ==
--- NOTE | 2023-03-22 13:29 | A.OFFPC_ITS ---
Vital Signs 03/22/23 13:31 Height 5 ft 3 in Weight 187 lb BMI 33.1 BP 136/84 Blood Pressure Location Lt brachial Position Sitting Pulse 73 Pulse Source Pulse Oximeter Pulse Oximetry (%) 100 Oxygen Delivery Method Room Air Intake Visit Reasons: Cataract Surgery ~ Allergies penicillin V Allergy (Unknown, Verified 03/22/23 13:30) rash hives swelling Penicillins Allergy (Unknown, Verified 03/22/23 13:30) rash hives swelling Sulfa (Sulfonamide Antibiotics) Allergy (Unknown, Verified 03/22/23 13:30) unknown-childhood Erythromycin Adverse Reaction (Unknown, Uncoded 02/06/23 09:17) GI upset Medication List - Last Reconciled 03/22/23 by Kalin Wyatt MD atorvastatin 20 mg PO BEDTIME 90 days calcium carbonate 600 mg PO DAILY latanoprost 0.005% 1 drp ophthalmic (eye) QPM levothyroxine 75 mcg PO QAM lisinopril 40 mg PO DAILY 90 days timolol maleate 0.5% 0.5 drps ophthalmic (eye) DAILY Tobacco use date assessed: 03/22/23 Fall risk assessment: No Falls in past year Last assessed Fall Risk: 03/22/23 HPI Cataract Surgery ~ HPI Details Patient is 72-year-old female came in today for cataract surgery clearance Patient will be having left eye done April 06 and right eye April [address] [facility] Patient have a history of hypertension, her blood pressure is elevated today we will recheck it before she leaves Patient is taking all her medications and tolerating them. Labs were done December of this year report reviewed again patient does have slightly low white count which is stable Liver enzymes are also slightly elevated however stable. She is taking levothyroxine 75 mcg for hypothyroidism and atorvastatin 20 mg for lipid disorder She is complaining of no new symptoms There is no fever chills sore throat or any other sign of infection. Patient is cleared for cataract surgery [facility] Medical History Lipid disorder Hypertension, essential Other specified hypothyroidism Surgical History History of appendectomy Family History Father Pancreatic cancer Myocardial infarction Mother Alzheimer's disease Son Obesity Daughter Migraine Maternal Grandmother No problems noted. Maternal Grandfather No problems noted. Paternal Grandfather No problems noted. Paternal Grandmother No problems noted. Sister No problems noted. 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 1. Little interest or pleasure in doing things: nearly every day 2. Feeling down, depressed, or hopeless: more than half the days 3. Trouble falling or staying asleep, or sleeping too much: several days 4. Feeling tired or having little energy: several days 5. Poor appetite or overeating: several days 6. Feeling bad about yourself - or that you are a failure or have let yourself or your family down: several days 7. Trouble concentrating on things, such as reading the newspaper or watching television: several days 8. Moving or speaking so slowly that other people could have noticed. Or the opposite - being so fidgety or restless that you have been moving around a lot more than usual: not at all 9. Thoughts that you would be better off or of hurting yourself in some way: not at all Total score: 10 Depression Screening Interpretation: Positive Depression Screening Follow-up: Existing condition Depression Screening Done: Yes 31607 - PHQ-9 Billing: Yes Source: Developed by Drs. Arthur Hassan, Nadia Peralta, Mikey Howard and colleagues, with an educational hannah from [employer]. Thrive Questionnaire Date Thrive assessed: 03/22/23 I am a: Patient What is your living situation today?: I have a steady place to live Within the past 12 months, did the food you bought not last and you didn't have the money to get more?: Never true Within the past 12 months, did you worry whether your food would run out before you got money to buy more?: Never true Do you have trouble paying for medicines?: No Do you have trouble getting transportation to medical appointments?: No Do you have trouble paying your heating and electricity bill?: No Do you have trouble taking care of your child, family member or friend?: No Do you have trouble with day-to-day activities such as bathing, preparing meals, shopping, managing finances, etc.?: No Are you currently unemployed and looking for a job?: No Are you interested in more education?: Yes Please select the resources that you would like help with: Job search/training and Education Currently or been in a relationship where the following occur: no concerns reported CECELIA-7 AMB Questionnaire CECELIA-7 Date CECELIA - 7 assessed: 03/22/23 Feeling nervous, anxious, or on edge: 0 = Not at all Not being able to stop or control worryin = Not at all Worrying too much about different things: 0 = Not at all Trouble relaxin = Several days Being so restless that it is hard to sit still: 0 = Not at all Becoming easily annoyed or irritable: 3 = Nearly every day Feeling afraid as if something awful might happen: 0 = Not at all Total CECELIA-7 score (0-4 normal; 5-9 mild; 10-14 moderate; 15-21 severe): 4 Source: Developed by Drs. Arthur Hassan, Nadia Peralta, Mikey Howard and colleagues, with an educational hannah from [employer]. CECELIA-7 Assessment Billing CECELIA-7 Assessment Tool: CECELIA-7 Assessment 23682 Review of Systems Const Denies chills and Denies fever(s) ENT Denies epistaxis and Denies nasal discharge Card Denies chest pain Resp Denies chest congestion, Denies cough and Denies hemoptysis GI Denies diarrhea and Denies nausea Skin/Breast Denies rash Neuro Reports no additional complaints Psych Reports no additional complaints Endo Reports no additional complaints Physical exam (Primary Care) Vital Signs: Last Vital Signs Pulse 73 03/22/23 13:31 BP 136/84 03/22/23 13:31 Pulse Ox 100 03/22/23 13:31 Oxygen Delivery Method Room Air 03/22/23 13:31 BMI result Body Mass Index 33.1 Tobacco/Smoking Status: Tobacco use Status Tobacco use date assessed 03/22/23 03/22/23 13:34 Patient Tobacco Use Status Never used Tobacco 03/22/23 13:34 e-Cigarette/Vaping Use Never Used 03/22/23 13:34 PHQ-9: PHQ-9 Score PHQ-9: Total score 10 03/22/23 13:51 Depression Screening Interpretation: Positive Depression Screening Follow-up: E xisting condition Thrive Assessment: Date of Thrive Assessment Date Thrive assessed 03/22/23 03/22/23 13:34 Currently or been in a relationship where the following occur: no concerns reported Const General: cooperative, comfortable and no acute distress Orientation/consciousness: patient oriented x3 HENMT Head: Yes normocephalic Eyes General: appearance normal, both eyes and all related structures Neck Neck: Yes supple Resp Effort & Inspection: normal respiratory effort, no cough and no stridor Cardio Rhythm: regular rhythm Heart sounds: S1 normal heart sound present and S2 normal heart sound present Skin General skin exam: turgor normal Neuro General: patient oriented x3, tone normal and moves all extremities Extrem Right lower extremity: no edema Left lower extremity: no edema Assessment and Plan Assessment & Plan (1) Pre-op evaluation: Code(s): Z01.818 - Encounter for other preprocedural examination (2) Cataract: Code(s): H26.9 - Unspecified cataract Qualifiers: Age-related cataract type: other Cataract type: age-related Laterality: bilateral Qualified Code(s): H25.89 - Other age-related cataract (3) Neutropenia: Code(s): D70.9 - Neutropenia, unspecified Qualifiers: Neutropenia type: unspecified Qualified Code(s): D70.9 - Neutropenia, unspecified (4) LFT elevation: Code(s): R79.89 - Other specified abnormal findings of blood chemistry (5) Hypertension, essential: Code(s): I10 - Essential (primary) hypertension (6) Other specified hypothyroidism: Code(s): E03.8 - Other specified hypothyroidism (7) Lipid disorder: Code(s): E78.9 - Disorder of lipoprotein metabolism, unspecified Plan Patient is 72-year-old female came in today for cataract surgery clearance Patient will be having left eye done April 06 and right eye April [address] [facility] Patient have a history of hypertension, her blood pressure is elevated today we will recheck it before she leaves Patient is taking all her medications and tolerating them. Labs were done December of this year report reviewed again patient does have slightly low white count which is stable Liver enzymes are also slightly elevated however stable. She is taking levothyroxine 75 mcg for hypothyroidism and atorvastatin 20 mg for lipid disorder She is complaining of no new symptoms There is no fever chills sore throat or any other sign of infection. Patient is cleared for cataract surgery Coding Level of Care Code Est Pt Level 4 (46797) Diagnoses Pre-op evaluation Z01.818 Other age-related cataract of both eyes H25.89 Age-related cataract type: other Cataract type: age-related Laterality: bilateral Neutropenia, unspecified type D70.9 Neutropenia type: unspecified LFT elevation R79.89 Hypertension, essential I10 Other specified hypothyroidism E03.8 Lipid disorder E78.9 Additional Codes CECELIA-7 Assessment Billing - CECELIA-7 Assessment Tool: CECELIA-7 Assessment 34630 ([id number])
[2023-03-22 13:31] VITALS: BP 136/84; PULSE 73; O2SAT 100; BMI 33.1
== END 2023-03-22 16:56 | disposition home or self-care (01) ==
PROVIDERS: PCP Internal Medicine; Visit Provider Internal Medicine
DX: Z01.818 Encounter for other preprocedural examination (principal); H25.89 Other age-related cataract; D70.9 Neutropenia, unspecified; R79.89 Other specified abnormal findings of blood chemistry; I10 Essential (primary) hypertension; E03.8 Other specified hypothyroidism; E78.9 Disorder of lipoprotein metabolism, unspecified
CPT/HCPCS: 99214

== ENCOUNTER 2023-05-25 08:11 | Outpatient (REF) | payer MEDICARE, SELFPAY ==
[2023-05-25 11:18] LABS: MANUAL DIFF FLAG NO
[2023-05-25 11:33] LABS: Basophils Percent Auto 0.9 % (0-2); Eosinophils Absolute Auto 0.1 X10*3/uL (0.0-0.4); Eosinophils Percent Auto 2.7 % (0-4); Hemoglobin 14.2 g/dl (12.0-16.0); Imm Gran Abs Auto 0.01 X10*3/uL (0.00-0.03); Imm Gran Pct Auto 0.3 % (0.0-0.4); Lymphocytes Absolute Auto 0.9 X10*3/uL (1.2-4.9); Lymphocytes Percent Auto 25.4 % (20-40); Mean Corpuscular Hemoglobin 30.8 pg (27.0-33.0); Mean Corpuscular Volume 93.3 fL (80.0-98.0); Monocytes Absolute Auto 0.4 X10*3/uL (0.1-1.2); Monocytes Percent Auto 10.3 % (2-11); Neutrophils Absolute Auto 2.1 x10*3/uL (2.0-8.3); Neutrophils Percent Auto 60.4 % (45-73); Platelet Count 186 X10*3/uL (160-400); Red Blood Count 4.61 X10*6/uL (4.20-5.50); Red Cell Distribution Width 12.7 % (11.0-16.0); White Blood Count 3.4 X10*3/uL (4.8-10.8)
[2023-05-25 11:59] LABS: Alanine Aminotransferase 31 U/L (0-31); Albumin Level 3.8 g/dL (3.5-5.0); Alkaline Phosphatase 107 U/L (39-117); Anion Gap 12 (12-20); Aspartate Amino Transferase 27 U/L (5-31); Bilirubin Total 0.9 mg/dL (0.0-1.0); Blood Urea Nitrogen 15 mg/dL (9-16); Calcium 9.6 mg/dL (8.4-10.2); Carbon Dioxide 27 mmol/L (22-29); Chloride 108 mmol/L (96-108); Estimated Glomerular Filt Rate > 60; Glucose Random 67 mg/dL (60-115); Lactate Dehydrogenase 219 U/L (122-220); Potassium 4.5 mmol/L (3.3-5.1); Sodium 142 mmol/L (135-145); Total Protein 6.7 g/dL (6.5-8.0)
== END 2023-05-25 08:12 | disposition home or self-care (01) ==
LOC: HO.HMGCLDS 08:11
PROVIDERS: PCP Internal Medicine; Visit Provider Internal Medicine Medical Oncology
DX: D70.9 Neutropenia, unspecified (principal)
CPT/HCPCS: 36415; 80053; 83615; 85025

== ENCOUNTER 2023-06-16 09:02 | Outpatient (AMB) | payer MEDICARE, SELFPAY ==
--- NOTE | 2023-06-16 09:10 | MHC.PC.OV ---
Vital Signs 06/16/23 09:12 Height 5 ft 3 in Weight 185 lb 8 oz BMI 32.9 BP 122/72 Blood Pressure Location Lt brachial Position Sitting Pulse 82 Pulse Source Pulse Oximeter Pulse Oximetry (%) 99 Oxygen Delivery Method Room Air Intake Visit Reasons: 8m follow up Allergies penicillin V Allergy (Unknown, Verified 06/16/23 09:14) rash hives swelling Penicillins Allergy (Unknown, Verified 06/16/23 09:14) rash hives swelling Sulfa (Sulfonamide Antibiotics) Allergy (Unknown, Verified 06/16/23 09:14) unknown-childhood Erythromycin Adverse Reaction (Unknown, Uncoded 05/31/23 09:20) GI upset Medication List - Last Reconciled 06/16/23 by Kalin Wyatt MD atorvastatin 20 mg PO BEDTIME 90 days calcium carbonate 600 mg PO DAILY latanoprost 0.005% 1 drp ophthalmic (eye) QPM levothyroxine 75 mcg PO QAM lisinopril 40 mg PO DAILY 90 days Tobacco use date assessed: 06/16/23 Fall risk assessment: No Falls in past year Dental Screening Dental Screen Date: 06/16/23 Did you have a dental visit in the last 12 months?: Yes Did you have a dental problem in the last 6 months where you did not have access to dental care?: No Was dental information given to patient?: Patient has dentist HPI 8m follow up HPI Details going to [facility] in dec for 10 days got Typhoid vaccine, up to date on Hep A and B through travel Clinic in [facility] Due for tetanus but would like to get it from pharmacy labs done recently reviewed she has chronically low WBC, has seen Dr. Frey Also have mild tremor left hand which is chronic, her mother also had tremor in her hand Blood pressure is well-controlled at 122/72 Her eye surgery went well for cataract She is taking levothyroxine 75 mcg for hypothyroidism and atorvastatin 20 mg for lipid disorder Patient will return in 4 months for follow-up [facility] Medical History Cataracts, bilateral Lipid disorder Hypertension, essential Other specified hypothyroidism Surgical History History of appendectomy Family History Father Pancreatic cancer Myocardial infarction Mother Alzheimer's disease Son Obesity Daughter Migraine Maternal Grandmother No problems noted. Maternal Grandfather No problems noted. Paternal Grandfather No problems noted. Paternal Grandmother No problems noted. Sister No problems noted. 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 Arthur Hassan, Nadia Peralta, Mikey Howard and colleagues, with an educational hannah from [employer]. Review of Systems Const Denies chills and Denies fever(s) ENT Denies epistaxis and Denies nasal discharge Card Denies chest pain Resp Denies chest congestion, Denies cough and Denies hemoptysis GI Denies diarrhea and Denies nausea Skin/Breast Denies rash Neuro Reports no additional complaints Psych Reports no additional complaints Endo Reports no additional complaints Physical exam (Primary Care) Vital Signs: Last Vital Signs Pulse 82 06/16/23 09:12 BP 122/72 06/16/23 09:12 Pulse Ox 99 06/16/23 09:12 Oxygen Delivery Method Room Air 06/16/23 09:12 BMI result Body Mass Index 32.9 Tobacco/Smoking Status: Tobacco use Status Tobacco use date assessed 06/16/23 06/16/23 09:17 Patient Tobacco Use Status Never used Tobacco 06/16/23 09:11 e-Cigarette/Vaping Use Never Used 06/16/23 09:11 Thrive Assessment: Date of Thrive Assessment Date Thrive assessed 03/22/23 06/16/23 09:11 Const General: cooperative, comfortable and no acute distress Orientation/consciousness: patient oriented x3 HENMT Head: Yes normocephalic Eyes General: appearance normal, both eyes and all related structures Neck Neck: Yes supple Resp Effort & Inspection: normal respiratory effort, no cough and no stridor Cardio Rhythm: regular rhythm Heart sounds: S1 normal heart sound present and S2 normal heart sound present Skin General skin exam: turgor normal Neuro Other: Mild tremor left outstretched General: patient oriented x3, tone normal and moves all extremities Extrem Right lower extremity: no edema Left lower extremity: no edema Assessment and Plan Assessment & Plan (1) Hypertension, essential: Code(s): I10 - Essential (primary) hypertension (2) Neutropenia: Code(s): D70.9 - Neutropenia, unspecified Qualifiers: Neutropenia type: unspecified Qualified Code(s): D70.9 - Neutropenia, unspecified (3) Other specified hypothyroidism: Code(s): E03.8 - Other specified hypothyroidism (4) Lipid disorder: Code(s): E78.9 - Disorder of lipoprotein metabolism, unspecified (5) Tremor of left hand: Code(s): R25.1 - Tremor, unspecified (6) Obesity due to excess calories: Code(s): E66.09 - Other obesity due to excess calories Qualifiers: Body mass index: BMI 32.0-32.9 Obesity classification: adult class 1 (BMI 30 - 34.9) Serious obesity comorbidity presence: with serious comorbidity Qualified Code(s): E66.09 - Other obesity due to excess calories; Z68.32 - Body mass index [BMI] 32.0-32.9, adult Plan going to [facility] in dec for 10 days got Typhoid vaccine, up to date on Hep A and B through travel Clinic in [facility] Due for tetanus but would like to get it from pharmacy labs done recently reviewed she has chronically low WBC, has seen Dr. Frey Also have mild tremor left hand which is chronic, her mother also had tremor in her hand Blood pressure is well-controlled at 122/72 Her eye surgery went well for cataract She is taking levothyroxine 75 mcg for hypothyroidism and atorvastatin 20 mg for lipid disorder Patient will return in 4 months for follow-up Coding Level of Care Code Est Pt Level 4 (04520) Diagnoses Hypertension, essential I10 Neutropenia, unspecified type D70.9 Neutropenia type: unspecified Other specified hypothyroidism E03.8 Lipid disorder E78.9 Tremor of left hand R25.1 Class 1 obesity due to excess calories with serious comorbidity and body mass index (BMI) of 32.0 to 32.9 in adult E66.09; Z68.32 Body mass index: BMI 32.0-32.9 Obesity classification: adult class 1 (BMI 30 - 34.9) Serious obesity comorbidity presence: with serious comorbidity
[2023-06-16 09:12] VITALS: BP 122/72; PULSE 82; O2SAT 99; BMI 32.9
== END 2023-06-16 09:37 | disposition home or self-care (01) ==
PROVIDERS: PCP Internal Medicine; Visit Provider Internal Medicine
DX: I10 Essential (primary) hypertension (principal); D70.9 Neutropenia, unspecified; E03.8 Other specified hypothyroidism; E78.9 Disorder of lipoprotein metabolism, unspecified; R25.1 Tremor, unspecified; E66.09 Other obesity due to excess calories; Z68.32 Body mass index [BMI] 32.0-32.9, adult
CPT/HCPCS: 99214

== ENCOUNTER 2023-10-18 08:23 | Outpatient (AMB) | payer MEDICARE, SELFPAY ==
[2023-10-18 08:27] VITALS: BP 148/90; PULSE 80; O2SAT 98; BMI 32.6
--- NOTE | 2023-10-18 08:27 | A.OFFPC_ITS ---
Vital Signs 10/18/23 08:27 Height 5 ft 3 in Weight 184 lb BMI 32.6 BP 148/90 H Blood Pressure Location Lt brachial Position Sitting Pulse 80 Pulse Source Pulse Oximeter Pulse Oximetry (%) 98 Oxygen Delivery Method Room Air Intake Visit Reasons: 4M F/U Allergies penicillin V Allergy (Unknown, Verified 10/18/23 08:30) rash hives swelling Penicillins Allergy (Unknown, Verified 10/18/23 08:30) rash hives swelling Sulfa (Sulfonamide Antibiotics) Allergy (Unknown, Verified 10/18/23 08:30) unknown-childhood Erythromycin Adverse Reaction (Unknown, Uncoded 10/18/23 08:30) GI upset Medication List - Last Reconciled 10/18/23 by Kalin Wyatt MD atorvastatin 20 mg PO BEDTIME 90 days calcium carbonate 600 mg PO DAILY levothyroxine 75 mcg PO QAM lisinopril 40 mg PO DAILY 90 days Tobacco use date assessed: 10/18/23 Fall risk assessment: No Falls in past year Last assessed Fall Risk: 10/18/23 Dental Screening Dental Screen Date: 10/18/23 Did you have a dental visit in the last 12 months?: Yes Did you have a dental problem in the last 6 months where you did not have access to dental care?: Yes Was dental information given to patient?: Patient has dentist HPI 4M F/U HPI Details Patient is 72-year-old female came in today for her regular follow-up appointment She is going to [facility] in December, has appointment with the travel clinic tomorrow Had lot of questions regarding polio drops and yellow fever, patient says that she is still thinking about dose vaccines Patient has neutropenia, she has been evaluated by Hematology More labs were done through hematology, and patient came out positive for antinuclear antibody She was referred to rheumatology she is doing well and have no symptoms of any rheumatological illness Hypertension: Patient is on lisinopril 40 mg her blood pressure has been running fine at home She has little stressed out today, blood pressure is elevated 148/90 we will continue to monitor Her other medications are atorvastatin 20 mg for lipid control and levothyroxine 75 mg for hypothyroidism , due for TSH BMI is elevated , patient is mindful of that and is trying to lose weight Follow-up 3 months with Medicare wellness visit [facility] Medical History Cataracts, bilateral Lipid disorder Hypertension, essential Other specified hypothyroidism Surgical History History of appendectomy Family History Father Pancreatic cancer Myocardial infarction Mother Alzheimer's disease Son Obesity Daughter Migraine Maternal Grandmother No problems noted. Maternal Grandfather No problems noted. Paternal Grandfather No problems noted. Paternal Grandmother No problems noted. Sister No problems noted. 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 1. Little interest or pleasure in doing things: not at all 2. Feeling down, depressed, or hopeless: not at all 3. Trouble falling or staying asleep, or sleeping too much: not at all 4. Feeling tired or having little energy: several days 5. Poor appetite or overeating: not at all 6. Feeling bad about yourself - or that you are a failure or have let yourself or your family down: not at all 7. Trouble concentrating on things, such as reading the newspaper or watching television: not at all 8. Moving or speaking so slowly that other people could have noticed. Or the opposite - being so fidgety or restless that you have been moving around a lot more than usual: not at all 9. Thoughts that you would be better off or of hurting yourself in some way: not at all Total score: 1 Depression Screening Interpretation: Negative Depression Screening Done: Yes 96298 - PHQ-9 Billing: Yes Source: Developed by Drs. Arthur Hassan, Nadia Peralta, Mikey Howard and colleagues, with an educational hannah from [employer]. Thrive Questionnaire Date Thrive assessed: 10/18/23 I am a: Patient What is your living situation today?: I have a steady place to live THRIVE Score: 0 CECELIA-7 AMB Questionnaire CECELIA-7 Date CECELIA - 7 assessed: 03/22/23 Source: Developed by Drs. Arthur Hassan, Nadia Peralta, Mikey Howard and colleagues, with an educational hannah from [employer]. Review of Systems Const Denies chills and Denies fever(s) ENT Denies epistaxis and Denies nasal discharge Card Denies chest pain Resp Denies chest congestion, Denies cough and Denies hemoptysis GI Denies diarrhea and Denies nausea Skin/Breast Denies rash Neuro Reports no additional complaints Psych Reports no additional complaints Endo Reports no additional complaints Physical exam (Primary Care) Vital Signs: Last Vital Signs Pulse 80 10/18/23 08:27 BP 148/90 H 10/18/23 08:27 Pulse Ox 98 10/18/23 08:27 Oxygen Delivery Method Room Air 10/18/23 08:27 BMI result Body Mass Index 32.6 Tobacco/Smoking Status: Tobacco use Status Tobacco use date assessed 10/18/23 10/18/23 08:33 Patient Tobacco Use Status Never used Tobacco 10/18/23 08:28 e-Cigarette/Vaping Use Never Used 10/18/23 08:28 PHQ-9: PHQ-9 Score PHQ-9: Total score 1 10/18/23 08:53 Depression Screening Interpretation: Negative Thrive Assessment: Date of Thrive Assessment Date Thrive assessed 10/18/23 10/18/23 08:28 Const General: cooperative, comfortable and no acute distress Orientation/consciousness: patient oriented x3 HENWV Head: Yes normocephalic Eyes General: appearance normal, both eyes and all related structures Neck Neck: Yes supple Resp Effort & Inspection: normal respiratory effort, no cough and no stridor Cardio Rhythm: regular rhythm Heart sounds: S1 normal heart sound present and S2 normal heart sound present Skin General skin exam: turgor normal Neuro General: patient oriented x3, tone normal and moves all extremities Extrem Right lower extremity: no edema Left lower extremity: no edema Assessment and Plan Assessment & Plan (1) Other specified hypothyroidism: Code(s): E03.8 - Other specified hypothyroidism (2) Hypertension, essential: Code(s): I10 - Essential (primary) hypertension (3) Lipid disorder: Code(s): E78.9 - Disorder of lipoprotein metabolism, unspecified (4) Obesity due to excess calories: Code(s): E66.09 - Other obesity due to excess calories Qualifiers: Body mass index: BMI 32.0-32.9 Obesity classification: adult class 1 (BMI 30 - 34.9) Serious obesity comorbidity presence: with serious comorbidity Qualified Code(s): E66.09 - Other obesity due to excess calories; Z68.32 - Body mass index [BMI] 32.0-32.9, adult (5) Neutropenia: Code(s): D70.9 - Neutropenia, unspecified Qualifiers: Neutropenia type: unspecified Qualified Code(s): D70.9 - Neutropenia, unspecified (6) EVER positive: Code(s): R76.8 - Other specified abnormal immunological findings in serum (7) Tremor of left hand: Code(s): R25.1 - Tremor, unspecified Plan Patient is 72-year-old female came in today for her regular follow-up appointment She is going to [facility] in December, has appointment with the travel clinic tomorrow Had lot of questions regarding polio drops and yellow fever, patient says that she is still thinking about dose vaccines Patient has neutropenia, she has been evaluated by Hematology More labs were done through hematology, and patient came out positive for antinuclear antibody She was referred to rheumatology she is doing well and have no symptoms of any rheumatological illness Hypertension: Patient is on lisinopril 40 mg her blood pressure has been running fine at home She has little stressed out today, blood pressure is elevated 148/90 we will continue to monitor Her other medications are atorvastatin 20 mg for lipid control and levothyroxine 75 mg for hypothyroidism , due for TSH BMI is elevated , patient is mindful of that and is trying to lose weight Continued to have tremors in her hands left more than right, she says that her mother also had the tremors She is not ready to see neurologist as yet, she will think about it and let me know next visit. She says that it does not bother her, she is still able to eat and drink without any problem Follow-up 3 months with Medicare wellness visit Orders: Orders TSH reflex Free T4 2 Months D70.9 - Neutropenia, unspecified, E03.8 - Other specified hypothyroidism, E66.09 - Other obesity due to excess calories, E78.9 - Disorder of lipoprotein metabolism, unspecified, I10 - Essential (primary) hypertension, R76.8 - Other specified abnormal immunological findings in serum, Z68.32 - Body mass index [BMI] 32.0-32.9, adult Complete Blood Count Auto Diff 2 Months D70.9 - Neutropenia, unspecified, E03.8 - Other specified hypothyroidism, E66.09 - Other obesity due to excess calories, E78.9 - Disorder of lipoprotein metabolism, unspecified, I10 - Essential (primary) hypertension, R76.8 - Other specified abnormal immunological findings in serum, Z68.32 - Body mass index [BMI] 32.0-32.9, adult Comprehensive Met. Panel 2 Months D70.9 - Neutropenia, unspecified, E03.8 - Other specified hypothyroidism, E66.09 - Other obesity due to excess calories, E78.9 - Disorder of lipoprotein metabolism, unspecified, I10 - Essential (primary) hypertension, R76.8 - Other specified abnormal immunological findings in serum, Z68.32 - Body mass index [BMI] 32.0-32.9, adult LDL Cholesterol Direct 2 Months D70.9 - Neutropenia, unspecified, E03.8 - Other specified hypothyroidism, E66.09 - Other obesity due to excess calories, E78.9 - Disorder of lipoprotein metabolism, unspecified, I10 - Essential (primary) hypertension, R76.8 - Other specified abnormal immunological findings in serum, Z68.32 - Body mass index [BMI] 32.0-32.9, adult Coding Level of Care Code Est Pt Level 4 (22182) Complex EM visit Add On G2211 Diagnoses Other specified hypothyroidism E03.8 Hypertension, essential I10 Lipid disorder E78.9 Class 1 obesity due to excess calories with serious comorbidity and body mass index (BMI) of 32.0 to 32.9 in adult E66.09; Z68.32 Body mass index: BMI 32.0-32.9 Obesity classification: adult class 1 (BMI 30 - 34.9) Serious obesity comorbidity presence: with serious comorbidity Neutropenia, unspecified type D70.9 Neutropenia type: unspecified EVER positive R76.8 Tremor of left hand R25.1
== END 2023-10-18 09:25 | disposition home or self-care (01) ==
PROVIDERS: PCP Internal Medicine; Visit Provider Internal Medicine
DX: E03.8 Other specified hypothyroidism (principal); D70.9 Neutropenia, unspecified; E66.09 Other obesity due to excess calories; Z68.32 Body mass index [BMI] 32.0-32.9, adult; I10 Essential (primary) hypertension; E78.9 Disorder of lipoprotein metabolism, unspecified; R76.8 Other specified abnormal immunological findings in serum; R25.1 Tremor, unspecified
CPT/HCPCS: 99214; G2211

== ENCOUNTER 2023-10-30 07:11 | Outpatient (REF) | payer MEDICARE, SELFPAY ==
[2023-10-30 10:07] LABS: MANUAL DIFF FLAG NO
[2023-10-30 10:21] LABS: Basophils Percent Auto 0.9 % (0-2); Eosinophils Absolute Auto 0.2 X10*3/uL (0.0-0.4); Eosinophils Percent Auto 5.1 % (0-4); Hematocrit 42.3 % (37.0-47.0); Imm Gran Abs Auto 0.02 X10*3/uL (0.00-0.03); Imm Gran Pct Auto 0.6 % (0.0-0.4); Lymphocytes Absolute Auto 1.1 X10*3/uL (1.2-4.9); Lymphocytes Percent Auto 31.8 % (20-40); Mean Corpuscular HGB Conc 33.1 g/dl (31.0-35.0); Mean Corpuscular Volume 93.6 fL (80.0-98.0); Mean Platelet Volume 11.3 fL (9.4-12.3); Monocytes Absolute Auto 0.4 X10*3/uL (0.1-1.2); Monocytes Percent Auto 11.7 % (2-11); Neutrophils Absolute Auto 1.7 x10*3/uL (2.0-8.3); Neutrophils Percent Auto 49.9 % (45-73); Platelet Count 179 X10*3/uL (160-400); Red Blood Count 4.52 X10*6/uL (4.20-5.50); Red Cell Distribution Width 12.7 % (11.0-16.0); White Blood Count 3.3 X10*3/uL (4.8-10.8)
[2023-10-30 10:33] LABS: Alanine Aminotransferase 42 U/L (0-31); Albumin Level 3.9 g/dL (3.5-5.0); Alkaline Phosphatase 115 U/L (39-117); Anion Gap 13 (12-20); Aspartate Amino Transferase 33 U/L (5-31); Bilirubin Total 0.8 mg/dL (0.0-1.0); Blood Urea Nitrogen 14 mg/dL (9-16); Carbon Dioxide 29 mmol/L (22-29); Chloride 108 mmol/L (96-108); Estimated Glomerular Filt Rate > 60; Glucose Random 90 mg/dL (60-115); Lactate Dehydrogenase 249 U/L (122-220); Potassium 5.3 mmol/L (3.3-5.1); Sodium 145 mmol/L (135-145); Total Protein 6.8 g/dL (6.5-8.0)
== END 2023-10-30 07:12 | disposition home or self-care (01) ==
LOC: HO.HMGCLDS 07:11
PROVIDERS: PCP Internal Medicine; Visit Provider Internal Medicine Medical Oncology
DX: D70.9 Neutropenia, unspecified (principal)
CPT/HCPCS: 36415; 80053; 83615; 85025

== ENCOUNTER 2024-01-09 07:16 | Outpatient (REF) | payer MEDICARE, SELFPAY ==
[2024-01-09 09:58] LABS: MANUAL DIFF FLAG NO
[2024-01-09 10:10] LABS: Basophils Percent Auto 0.9 % (0-2); Eosinophils Absolute Auto 0.1 X10*3/uL (0.0-0.4); Eosinophils Percent Auto 2.1 % (0-4); Hematocrit 42.3 % (37.0-47.0); Hemoglobin 14.1 g/dl (12.0-16.0); Imm Gran Abs Auto 0.02 X10*3/uL (0.00-0.03); Imm Gran Pct Auto 0.6 % (0.0-0.4); Lymphocytes Absolute Auto 1.2 X10*3/uL (1.2-4.9); Lymphocytes Percent Auto 36.6 % (20-40); Mean Corpuscular HGB Conc 33.3 g/dl (31.0-35.0); Mean Corpuscular Hemoglobin 30.9 pg (27.0-33.0); Mean Corpuscular Volume 92.8 fL (80.0-98.0); Mean Platelet Volume 10.9 fL (9.4-12.3); Monocytes Absolute Auto 0.3 X10*3/uL (0.1-1.2); Neutrophils Absolute Auto 1.7 x10*3/uL (2.0-8.3); Neutrophils Percent Auto 49.8 % (45-73); Platelet Count 199 X10*3/uL (160-400); Red Blood Count 4.56 X10*6/uL (4.20-5.50); Red Cell Distribution Width 12.4 % (11.0-16.0); White Blood Count 3.3 X10*3/uL (4.8-10.8)
[2024-01-09 10:44] LABS: Alanine Aminotransferase 60 U/L (0-31); Albumin Level 3.8 g/dL (3.5-5.0); Alkaline Phosphatase 152 U/L (39-117); Anion Gap 13 (12-20); Aspartate Amino Transferase 36 U/L (5-31); Bilirubin Total 0.9 mg/dL (0.0-1.0); Blood Urea Nitrogen 13 mg/dL (9-16); Calcium 9.6 mg/dL (8.4-10.2); Carbon Dioxide 29 mmol/L (22-29); Chloride 107 mmol/L (96-108); Estimated Glomerular Filt Rate > 60; Glucose Random 88 mg/dL (60-115); Potassium 4.2 mmol/L (3.3-5.1); Sodium 145 mmol/L (135-145); Total Protein 6.8 g/dL (6.5-8.0)
[2024-01-09 10:46] LABS: TSH reflex Free T4 2.83 uIU/mL (0.32-4.0)
[2024-01-10 18:04] LABS: LDL Cholesterol Direct 61 mg/dL (<100)
== END 2024-01-09 07:17 | disposition home or self-care (01) ==
LOC: HO.HMGCLDS 07:16
PROVIDERS: PCP Internal Medicine; Visit Provider Internal Medicine
DX: E03.8 Other specified hypothyroidism (principal); I10 Essential (primary) hypertension; E78.9 Disorder of lipoprotein metabolism, unspecified; E66.09 Other obesity due to excess calories; Z68.32 Body mass index [BMI] 32.0-32.9, adult; D70.9 Neutropenia, unspecified; R76.8 Other specified abnormal immunological findings in serum
CPT/HCPCS: 36415; 80053; 83721; 84443; 85025

== ENCOUNTER 2024-01-17 08:19 | Outpatient (AMB) | payer MEDICARE, SELFPAY ==
--- NOTE | 2024-01-17 08:21 | A.OFFVIS_ITS ---
Intake Vital Signs 01/17/24 08:24 Height 5 ft 3 in Weight 182 lb 4 oz BMI 32.3 BP 142/86 H Blood Pressure Location Lt brachial Position Sitting Pulse 73 Pulse Source Pulse Oximeter Pulse Oximetry (%) 98 Oxygen Delivery Method Room Air Intake Visit Reasons: SWV [id number] Allergies penicillin V Allergy (Unknown, Verified 01/17/24 08:26) rash hives swelling Penicillins Allergy (Unknown, Verified 01/17/24 08:26) rash hives swelling Sulfa (Sulfonamide Antibiotics) Allergy (Unknown, Verified 01/17/24 08:26) unknown-childhood Erythromycin Adverse Reaction (Unknown, Uncoded 11/16/23 09:12) GI upset Medication List - Last Reconciled 01/17/24 by Kalin Wyatt MD atorvastatin 20 mg PO BEDTIME 90 days calcium carbonate 600 mg PO DAILY levothyroxine 75 mcg PO QAM lisinopril 40 mg PO DAILY 90 days HPI SWV [id number] HPI Details Kate came in today for her Medicare wellness 10 regular follow-up appointment Labs done recently reviewed, continued to have low white count but stable Her liver enzymes are slightly worse than before Especially alkaline phosphatase Patient says that she took antimalarial medication for three-month while visiting [place] She is also on statin We will continue to monitor, she will repeat labs again in 3 months Blood pressure is slightly elevated here, however patient is monitoring it at home and it is running around 120 systolic Does admit to feel slightly anxious at time Especially that her daughter is having a baby through IVF And she is in [place] TSH level is within normal limit, she is to continue levothyroxine Patient has also developed a benign familiar tremor, she tells me that her mother had similar tremor However she is fully functional at this time and does not need medication. BMI is elevated patient is aware she is trying to lose weight Follow-up 3 months HPI Comments History of Present Illness Details AWV Medical/social history reviewed Past medical history reviewed [place] of care / care team list updated Surgical/ hospitalization history reviewed Current medications including OTC and supplements reviewed Family history reviewed Tobacco controlled form updated Alcohol use form updated Illicit drug use in social history reviewed Current diagnosis of depression ?screening updated Appropriate PHQ 2/PHQ-9 completed . Vital signs reviewed Alcohol tobacco drug use reviewed and discussed . MMSE completed . ? Fall risk: ?Assessed Fall history: ?None Have you had any falls with injury in the past year?? No Have you had 2 or more falls in the past year?? No Fall risk assessment completed Home safety discussed with the patient Functional ability assessed and discussed and documented Activities of daily living reviewed and appropriate actions taken . HRA filled out by the patient and reviewed by provider and scanned . Appropriate written screening schedule established . Any health advise needed provided . Advance care planning discussed with the patient , necessary paperwork filled Examination IPPE/AWE: Balance intact Romberg intact Tandem walk intact walk-in turn intact rise from sit to stand intact . ?Hearing ?whisper test pass . Medication list reviewed, patient is stable on medications All other providers patient is seeing discussed and noted . [facility] Medical History Cataracts, bilateral Lipid disorder Hypertension, essential Other specified hypothyroidism Surgical History History of appendectomy Family History Father Pancreatic cancer Myocardial infarction Mother Alzheimer's disease Son Obesity Daughter Migraine Maternal Grandmother No problems noted. Maternal Grandfather No problems noted. Paternal Grandfather No problems noted. Paternal Grandmother No problems noted. Sister No problems noted. 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 Cognitive needs: No Hearing needs: No Vision needs: Yes Questionnaire Medicare Wellness Checkup [age] What gender do you identify with?: female During the past 4 weeks, how much have you been bothered by emotional problems such as feeling anxious, depressed, irritable, sad or downhearted, and blue?: slightly During the past 4 weeks, has your physical & emotional health limited your social activities with family, friends, neighbors, or groups?: not at all During the past 4 weeks, how much bodily pain have you generally had?: very mild pain During the past 4 weeks, was someone available to help you if you needed & wanted help?: yes, as much as I wanted During the past 4 weeks, what was the hardest physical activity you could do for at least 2 minutes?: very heavy Can you get to places out of walking distance without help? (For eg., can you travel alone on buses, taxis or drive your car?): Yes Can you go shopping for groceries or clothes without someone's help?: Yes Can you prepare your own meals?: Yes Can you do your housework without help?: Yes Because of any health problems, do you need the help of another person with your personal care needs such as eating, bathing, dressing or getting around the house?: No Can you handle your own money without help?: Yes During the past 4 weeks, how would you rate your health in general?: excellent During the past 4 weeks how have things been going for you?: very well; could hardly better Are you having difficulties driving your car?: no Do you always fasten your seat belt when you are in a car?: yes, usually During past 4 weeks, have you been bothered by the following: never: Falling or dizzy when standing up, Sexual problems?, Trouble eating well?, Teeth or denture problems?, Problems using the telephone? and Tiredness or fatigue? Have you fallen 2 or more times in the past year?: No Are you afraid of falling?: Yes Are you a smoker?: no During the past 4 weeks, how many drinks of wine, beer, or other alcoholic beverages did you have?: 1 drink or less per week Do you exercise for about 20 minutes 3 or more times a week?: yes, some of the time Have you been given information to help with the following?: no: Hazards in your house that might hurt you? and no: Keeping track of your medications? How often do you have trouble taking medicines the way you have been told to take them?: I always take medicine as prescribed How confident are you that you can control & manage most of your health problems?: very confident What is your race?: White Mini Mental State Exam (MMSE) Orientation What is the (year) (season) (date) (day) (month)?: year, season, date, day and month Where are we (state) (county) (town or city) (hospital) (floor)?: state, county, town or city, hospital/clinic and floor Score Score: 10 Activity of Daily Living Bathing - sponge bath, tub bath or shower: receives no assistance (gets in/out by self, if usual bathing means Dressing - getting clothes from closets & drawers, including inner/outer garments & fasteners.: gets clothes & gets completely dressed without help Toileting - going to the 'toilet room' for urine/bowel elimination & cleaning self/arranging clothes: goes to toilet room, cleans self, arranges clothes without help Transfer: moves in & out of bed and chair without help (may use support object) Continence: controls urination/bowel movements completely by self Feeding: feeds self without help Total Score: 0 Information obtained from: patient Using telephone: independent Traveling: independent Shopping: independent Preparing meals: independent Housework: independent Taking medicine: independent Managing money: independent PHQ-9 Over the last 2 weeks, how often have you been bothered by any of the following problems? 1. Little interest or pleasure in doing things: not at all 2. Feeling down, depressed, or hopeless: not at all 3. Trouble falling or staying asleep, or sleeping too much: not at all 4. Feeling tired or having little energy: several days 5. Poor appetite or overeating: not at all 6. Feeling bad about yourself - or that you are a failure or have let yourself or your family down: not at all 7. Trouble concentrating on things, such as reading the newspaper or watching television: not at all 8. Moving or speaking so slowly that other people could have noticed. Or the opposite - being so fidgety or restless that you have been moving around a lot more than usual: not at all 9. Thoughts that you would be better off or of hurting yourself in some way: not at all Total score: 1 Depression Screening Interpretation: Negative Depression Screening Done: Yes 17514 - PHQ-9 Billing: Yes Source: Developed by Drs. Arthur Hassan, Nadia Peralta, Mikey Howard and colleagues, with an educational hannah from [employer]. Review of Systems Const Denies chills and Denies fever(s) ENT Denies epistaxis and Denies nasal discharge Card Denies chest pain Resp Denies chest congestion, Denies cough and Denies hemoptysis GI Denies diarrhea and Denies nausea Skin/Breast Denies rash Neuro Reports no additional complaints Psych Reports no additional complaints Endo Reports no additional complaints Physical Exam Vital Signs: Last Vital Signs Pulse 73 01/17/24 08:24 BP 142/86 H 01/17/24 08:24 Pulse Ox 98 01/17/24 08:24 Oxygen Delivery Method Room Air 01/17/24 08:24 BMI result Body Mass Index 32.3 Const General: cooperative, comfortable and no acute distress Orientation/consciousness: patient oriented x3 HEENT Head: Yes normocephalic Eyes General: appearance normal, both eyes and all related structures Neck Other: Supple Neck: Yes supple Resp Effort & Inspection: normal respiratory effort, no cough and no stridor Cardio Rhythm: regular rhythm Heart sounds: S1 normal heart sound present and S2 normal heart sound present Skin General skin exam: turgor normal Neuro Other: Motor sensory intact, fine tremors in hand noticed General: patient oriented x3, tone normal and moves all extremities Extrem Other: No lower extremity swelling. Right lower extremity: no edema Left lower extremity: no edema Psych Other: Normal effect, speech clear Assessment & Plan Assessment & Plan (1) Medicare annual wellness visit, subsequent: Code(s): Z00.00 - Encounter for general adult medical examination without abnormal findings (2) LFT elevation: Code(s): R79.89 - Other specified abnormal findings of blood chemistry (3) Benign familial tremor: Code(s): G25.0 - Essential tremor (4) Hypertension, essential: Code(s): I10 - Essential (primary) hypertension (5) Other specified hypothyroidism: Code(s): E03.8 - Other specified hypothyroidism (6) Lipid disorder: Code(s): E78.9 - Disorder of lipoprotein metabolism, unspecified (7) Neutropenia: Code(s): D70.9 - Neutropenia, unspecified Qualifiers: Neutropenia type: other Qualified Code(s): D70.8 - Other neutropenia Plan Kate came in today for her Medicare wellness 10 regular follow-up appointment Labs done recently reviewed, continued to have low white count but stable Her liver enzymes are slightly worse than before Especially alkaline phosphatase Patient says that she took antimalarial medication for three-month while visiting [place] She is also on statin We will continue to monitor, she will repeat labs again in 3 months Blood pressure is slightly elevated here, however patient is monitoring it at home and it is running around 120 systolic Does admit to feel slightly anxious at time Especially that her daughter is having a baby through IVF And she is in [place] TSH level is within normal limit, she is to continue levothyroxine Patient has also developed a benign familiar tremor, she tells me that her mother had similar tremor However she is fully functional at this time and does not need medication. BMI is elevated patient is aware she is trying to lose weight Follow-up 3 months Orders: Orders MM tomosynthesis screening BI Today Z12.31 - Encounter for screening mammogram for malignant neoplasm of breast Liver Panel 3 Months R79.89 - Other specified abnormal findings of blood chemistry Quality Reporting (2019) Depression/Bipolar (159/160/161/177) PHQ-9: Total score: 1 Coding Level of Care Code Medicare Subsequent (G0439) Est Pt Level 4 (73446) Diagnoses Medicare annual wellness visit, subsequent Z00.00 LFT elevation R79.89 Benign familial tremor G25.0 Hypertension, essential I10 Other specified hypothyroidism E03.8 Lipid disorder E78.9 Other neutropenia D70.8 Neutropenia type: other
[2024-01-17 08:24] VITALS: BP 142/86; PULSE 73; O2SAT 98; BMI 32.3
== END 2024-01-17 08:57 | disposition home or self-care (01) ==
PROVIDERS: PCP Internal Medicine; Visit Provider Internal Medicine
DX: Z00.00 Encounter for general adult medical examination without abnormal findings (principal); R79.89 Other specified abnormal findings of blood chemistry; D70.8 Other neutropenia; G25.0 Essential tremor; I10 Essential (primary) hypertension; E03.8 Other specified hypothyroidism; E78.9 Disorder of lipoprotein metabolism, unspecified

== ENCOUNTER → 2024-01-17 08:19 | Outpatient (BNVA) | payer MEDICARE, SELFPAY | PROVIDERS: PCP Internal Medicine; Visit Provider Internal Medicine | DX: Z00.00 Encounter for general adult medical examination without abnormal findings (principal); R79.89 Other specified abnormal findings of blood chemistry; G25.0 Essential tremor; I10 Essential (primary) hypertension; E03.8 Other specified hypothyroidism; E78.9 Disorder of lipoprotein metabolism, unspecified; D70.8 Other neutropenia; Z79.899 Other long term (current) drug therapy | CPT/HCPCS: 96127; 99212 ==

== ENCOUNTER 2024-04-29 07:15 | Outpatient (REF) | payer MEDICARE, SELFPAY ==
--- OUTSIDE RECORDS SUMMARY | 2024-04-29 07:18 | XMS_ITS | Clinical Summary ---
Author Organization [facility] Address [address] [place] [address] Care Team Providers Care Ux Consultant Name Role Phone Kalin Wyatt MD Primary Care Provider [phone] Allergies Active Allergy Reactions Criticality Noted Date Comments Penicillins 07/21/2021 Medications Medication Sig Dispensed Refills Start Date End Date Status lisinopril (PRINIVIL,ZESTRIL) tablet 40 mg 0 07/04/2021 Active levothyroxine (SYNTHROID) tablet 75 mcg 0 05/26/2021 Active latanoprost (XALATAN) 0.005 % ophthalmic solution 0 07/20/2021 Activ e timolol (TIMOPTIC) 0.5 % ophthalmic solution 0 04/20/2021 Active atorvastatin (LIPITOR) tablet 20 mg Take 20 mg by mouth daily. 0 Active oxyCODONE (ROXICODONE) 5 MG immediate release tablet Take 1 tab 1 hour prior to MRI study. Must have a person take you to and from the study. 1 tablet 0 07/21/2021 Active celecoxib (CeleBREX) 200 MG capsule TAKE ONE CAPSULE BY MOUTH EVERY DAY 30 capsule 0 08/10/2021 Active Family History Medical History Relation Name Comments Arthritis Father Cancer Father Diabetes Mother Hypertension Mother Relation Name Status Comments Father Mother Social History Tobacco Use Types Packs/Day Years Used Date Smoking Tobacco: Never Smokeless Tobacco: Never Alcohol Use Standard Drinks/Week Comments Yes 2 (1 standard drink = 0.6 oz pur e alcohol) 2x 1 month Sex and Gender Information Value Date Recorded Sex Assigned at Not on file Gender Identity Not on file Sexual Orientation Not on file Job Start Date Occupation Industry Not on file Not on file Not on file Last Filed Vital Signs Vital Sign Reading Time Taken Comments Blood Pressure - - Pulse - - Temperature - - Respiratory Rate - - Oxygen Saturation - - Inhaled Oxygen Concentration - - Weight 79.4 kg (175 lb) 10/25/2021 1:48 PM EDT Height 157.5 cm (5' 2 ) 10/25/2021 1:48 PM EDT Body Mass Index 32.01 10/25/2021 1:48 PM EDT Plan of Treatment Health Maintenance Due Date Last Done Comments Hepatitis C Screening 1950 COVID-19 Vaccine (#1) 06/23/1951 Depression Screening 1964 BMI Counseling 1970 Preventative Health Evaluation 1970 DTap / Tdap / Td (1 - Tdap) 12/25/1971 Colon Cancer Screening (Colonoscopy) 1997 Breast Cancer Screening (Mammogram) 2002 Shingrix-Zoster Vaccine (1 of 2) 2002 Fall Risk Assessment 2017 Osteoporosis Screening (DEXA Scan) 2017 Pneumococcal Vaccine (1 of 1 - PCV) 2017 Influenza Vaccine (#1) 2023 RSV Adult > 60+ Yrs or Pregn ant (1 - 1-dose 75+ series) 12/25/2027 Hepatitis B Vaccines Aged Out No long er eligible based on patient's age to complete this topic RSV Ped < 20 months Aged Out No longe r eligible based on patient's age to complete this topic Care Teams Ux Consultant Relationship Specialty Start Date End Date Kalin Wyatt MD [phone] [place] [phone] PCP - General Internal Medicine 07/20/21
[2024-04-29 11:14] LABS: Alanine Aminotransferase 32 U/L (0-31); Albumin Level 3.8 g/dL (3.5-5.0); Alkaline Phosphatase 87 U/L (39-117); Aspartate Amino Transferase 29 U/L (5-31); Bilirubin Direct 0.2 mg/dL (0.0-0.5); Bilirubin Total 0.7 mg/dL (0.0-1.0); Total Protein 6.8 g/dL (6.5-8.0)
== END 2024-04-29 07:16 | disposition home or self-care (01) ==
LOC: HO.HMGCLDS 07:15
PROVIDERS: PCP Internal Medicine; Visit Provider Internal Medicine
DX: R79.89 Other specified abnormal findings of blood chemistry (principal)
CPT/HCPCS: 36415; 80076

== ENCOUNTER 2024-04-30 08:50 | Outpatient (AMB) | payer MEDICARE, SELFPAY ==
--- NOTE | 2024-04-30 08:54 | A.OFFPC_ITS ---
Vital Signs 04/30/24 08:55 Height 5 ft 3 in Weight 184 lb 2 oz BMI 32.6 BP 128/82 Blood Pressure Location Lt brachial Position Sitting Pulse 72 Pulse Source Pulse Oximeter Pulse Oximetry (%) 98 Oxygen Delivery Method Room Air Intake Visit Reasons: 3 months f/up Allergies penicillin V Allergy (Unknown, Verified 04/30/24 08:55) rash hives swelling Penicillins Allergy (Unknown, Verified 04/30/24 08:55) rash hives swelling Sulfa (Sulfonamide Antibiotics) Allergy (Unknown, Verified 04/30/24 08:55) unknown-childhood Erythromycin Adverse Reaction (Unknown, Uncoded 11/16/23 09:12) GI upset Medication List - Last Reconciled 04/30/24 by Kalin Wyatt MD atorvastatin 20 mg PO BEDTIME 90 days calcium carbonate 600 mg PO DAILY levothyroxine 75 mcg PO QAM lisinopril 40 mg PO DAILY 90 days Tobacco use date assessed: 04/30/24 Last assessed Fall Risk: 04/30/24 Dental Screening Dental Screen Date: 04/30/24 Did you have a dental visit in the last 12 months?: Yes Did you have a dental problem in the last 6 months where you did not have access to dental care?: No Was dental information given to patient?: Patient has dentist HPI 3 months f/up HPI Details - The patient is a 73-year-old female ca me in for follow-up appointment presenting with osteoarthritis, familial benign essential tremor, and a sore throat. - Osteoarthritis symptoms include stiffn ess after prolonged sitting and worsening symptoms with inactivity. Management includes Tylenol. - Familial Benign Essential Tremor has b een present with exacerbated symptoms linked to stress and muscle fatigue, not impairing daily functionality. - The sore throat began recently and is present primarily during swallowing, without additional symptoms such as sneezing or congestion. - Hyperlipidemia is being managed primar alma with atorvastatin, though the patient reports taking a reduced dosage due to prior instruction from another provider. - hypertension blood pressure is stable with lisinopril no side effects - lipid disorder, taking medication with out any side effects - hypothyroidism continue levothyroxine 75 mcg Medications - Lisinopril 40 mg for hypertension - Levothyroxine 75 mg - Atorvastatin 10 mg (patient-reduced do se) for hyperlipidemia Problem List - Osteoarthritis - Familial Benign Essential Tremor - Sore Throat - Hyperlipidemia - Hypertension - levothyroxine [place] of Care - Dr. Frey is involved in the patient' s care and has scheduled future labs. Patient Instructions - Monitor the sore throat and perform a COVID-19 test at home if symptoms worsen. - Manage osteoarthritis stiffness with T ylenol and by keeping mobile. - Continue to take current medications a t the prescribed doses unless changes are instructed by a healthcare provider. - Report any increase in tremor severity or if daily activities become impaired. - Inform the lab to conduct tests ordere d by both Dr. Frey and Dr. Wyatt during next visit. Follow-up 4 months Review of Systems - Musculoskeletal: Reports stiffness wit h prolonged sitting; denies stiffness while active. - Neurological: Reports familial benign essential tremor; denies impact on daily activities except under stress. - Respiratory: Denies sneezing or conges tion. - ENT: Reports sore throat, particularly when swallowing; denies other upper respiratory symptoms. General: No fever no chills cardiovascular: No syncope, no chest pain, no palpitations gastrointestinal: No nausea vomiting or diarrhea endocrine: No polyuria polydipsia no heat intolerance genitourinary: No dysuria skin: No new complaints Physical Exam general: No acute distress HEENT: Mild sore throat, more noticeable when swallowing neck: Supple respiratory system: Able to talk in full sentences, no audible wheeze, no stridor cardiovascular: S1-S2 gastrointestinal: No pain extremities: Stiffness noted after sitting for more than 20 minutes, improves with movement SUPPLY REQUIREMENTS OFFICER: Alert awake oriented x3 motor sensory intact, benign familial tremor noted skin: Normal turgor [facility] Medical History Cataracts, bilateral Lipid disorder Hypertension, essential Other specified hypothyroidism Surgical History History of appendectomy Family History Father Pancreatic cancer Myocardial infarction Mother Alzheimer's disease Son Obesity Daughter Migraine Maternal Grandmother No problems noted. Maternal Grandfather No problems noted. Paternal Grandfather No problems noted. Paternal Grandmother No problems noted. Sister No problems noted. 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 1. Little interest or pleasure in doing things: not at all 2. Feeling down, depressed, or hopeless: not at all 3. Trouble falling or staying asleep, or sleeping too much: not at all 4. Feeling tired or having little energy: not at all 5. Poor appetite or overeating: not at all 6. Feeling bad about yourself - or that you are a failure or have let yourself or your family down: not at all 7. Trouble concentrating on things, such as reading the newspaper or watching television: not at all 8. Moving or speaking so slowly that other people could have noticed. Or the opposite - being so fidgety or restless that you have been moving around a lot more than usual: not at all 9. Thoughts that you would be better off or of hurting yourself in some way: not at all Total score: 0 Depression Screening Interpretation: Negative Depression Screening Done: Yes 95629 - PHQ-9 Billing: Yes Source: Developed by Drs. Arthur Hassan, Nadia Peralta, Mikey Howard and colleagues, with an educational hannah from [employer] Thrive Questionnaire Date Thrive assessed: 04/30/24 I am a: Patient What is your living situation today?: I have a steady place to live Within the past 12 months, did the food you bought not last and you didn't have the money to get more?: Never true Within the past 12 months, did you worry whether your food would run out before you got money to buy more?: Never true Do you have trouble paying for medicines?: No Do you have trouble getting transportation to medical appointments?: No Do you have trouble paying your heating and electricity bill?: No Do you have trouble taking care of your child, family member or friend?: No Do you have trouble with day-to-day activities such as bathing, preparing meals, shopping, managing finances, etc.?: No Are you currently unemployed and looking for a job?: No Are you interested in more education?: No Please select the resources that you would like help with: None Currently or been in a relationship where the following occur: No concerns reported THRIVE Score: 0 AUDIT C Alcohol Use Questionnaire (AUDIT-C) 1. How often do you have a drink containing alcohol?: Monthly or less 2. How many drinks containing alcohol do you have on a typical day when you are drinking?: 1 or 2 3. How often do you have six or more drinks on one occasion?: Never Total Score: 1 Score Reviewed/Action Taken: Yes CECELIA-7 AMB Questionnaire CECELIA-7 Date CECELIA - 7 assessed: 04/30/24 Feeling nervous, anxious, or on edge: 0 = Not at all Not being able to stop or control worryin = Not at all Worrying too much about different things: 0 = Not at all Trouble relaxin = Not at all Being so restless that it is hard to sit still: 0 = Not at all Becoming easily annoyed or irritable: 0 = Not at all Feeling afraid as if something awful might happen: 0 = Not at all Total CECELIA-7 score (0-4 normal; 5-9 mild; 10-14 moderate; 15-21 severe): 0 Source: Developed by Drs. Arthur Hassan, Nadia Peralta, Mikey Howard and colleagues, with an educational hannah from [employer] CECELIA-7 Assessment Billing CECELIA-7 Assessment Tool: CECELIA-7 Assessment 76050 Physical exam (Primary Care) Vital Signs: Last Vital Signs Pulse 72 04/30/24 08:55 BP 128/82 04/30/24 08:55 Pulse Ox 98 04/30/24 08:55 Oxygen Delivery Method Room Air 04/30/24 08:55 BMI result Body Mass Index 32.6 Tobacco/Smoking Status: Tobacco use Status Tobacco use date assessed 04/30/24 04/30/24 08:56 Patient Tobacco Use Status Never used Tobacco 04/30/24 08:55 e-Cigarette/Vaping Use Never Used 04/30/24 08:55 PHQ-9: PHQ-9 Score PHQ-9: Total score 0 04/30/24 09:32 Depression Screening Interpretation: Negative Thrive Assessment: Date of Thrive Assessment Date Thrive assessed 04/30/24 04/30/24 08:56 Currently or been in a relationship where the following occur: No concerns reported Coding Level of Care Code Est Pt Level 4 (41598) Complex EM visit Add On G2211 Diagnoses Hypertension, essential I10 Lipid disorder E78.9 Other neutropenia D70.8 Neutropenia type: other Benign familial tremor G25.0 Other specified hypothyroidism E03.8 Class 1 obesity due to excess calories with serious comorbidity and body mass index (BMI) of 32.0 to 32.9 in adult E66.09; Z68.32 Obesity classification: adult class 1 (BMI 30 - 34.9) Serious obesity comorbidity presence: with serious comorbidity Body mass index: BMI 32.0-32.9 Sore throat J02.9 Stiffness of joint M25.60 Additional Codes CECELIA-7 Assessment Billing - CECELIA-7 Assessment Tool: CECELIA-7 Assessment 39991 ([id number]) PHQ-9 - 82972 - PHQ-9 Billing: Yes ([id number]) Assessment & Plan Assessment & Plan (1) Hypertension, essential: Code(s): I10 - Essential (primary) hypertension Category: Medical (2) Lipid disorder: Code(s): E78.9 - Disorder of lipoprotein metabolism, unspecified Category: Medical (3) Neutropenia: Code(s): D70.9 - Neutropenia, unspecified Category: Medical Qualifiers: Neutropenia type: other Qualified Code(s): D70.8 - Other neutropenia (4) Benign familial tremor: Code(s): G25.0 - Essential tremor Category: Medical (5) Other specified hypothyroidism: Code(s): E03.8 - Other specified hypothyroidism Category: Medical (6) Obesity due to excess calories: Code(s): E66.09 - Other obesity due to excess calories Category: Medical Qualifiers: Obesity classification: adult class 1 (BMI 30 - 34.9) Serious obesity comorbidity presence: with serious comorbidity Body mass index: BMI 32.0-32.9 Qualified Code(s): E66.09 - Other obesity due to excess calories; Z68.32 - Body mass index [BMI] 32.0-32.9, adult (7) Sore throat: Code(s): J02.9 - Acute pharyngitis, unspecified Category: Medical (8) Stiffness of joint: Code(s): M25.60 - Stiffness of unspecified joint, not elsewhere classified Category: Medical Plan - The patient is a 73-year-old female came in for follow-up appointment presenting with osteoarthritis, familial benign essential tremor, and a sore throat. - Osteoarthritis symptoms include stiffness after prolonged sitting and worsening symptoms with inactivity. Management includes Tylenol. - Familial Benign Essential Tremor has been present with exacerbated symptoms linked to stress and muscle fatigue, not impairing daily functionality. - The sore throat began recently and is present primarily during swallowing, without additional symptoms such as sneezing or congestion. - Hyperlipidemia is being managed primarily with atorvastatin, though the patient reports taking a reduced dosage due to prior instruction from another provider. - hypertension blood pressure is stable with lisinopril no side effects - lipid disorder, taking medication without any side effects - hypothyroidism continue levothyroxine 75 mcg Medications - Lisinopril 40 mg for hypertension - Levothyroxine 75 mg - Atorvastatin 10 mg (patient-reduced dose) for hyperlipidemia Problem List - Osteoarthritis - Familial Benign Essential Tremor - Sore Throat - Hyperlipidemia - Hypertension - levothyroxine [place] of Care - Dr. Frey is involved in the patient's care and has scheduled future labs. Patient Instructions - Monitor the sore throat and perform a COVID-19 test at home if symptoms worsen. - Manage osteoarthritis stiffness with Tylenol and by keeping mobile. - Continue to take current medications at the prescribed doses unless changes are instructed by a healthcare provider. - Report any increase in tremor severity or if daily activities become impaired. - Inform the lab to conduct tests ordered by both Dr. Frey and Dr. Wyatt during next visit. Follow-up 4 months Orders: Orders Comprehensive Met. Panel Today D70.8 - Other neutropenia, E78.9 - Disorder of lipoprotein metabolism, unspecified, I10 - Essential (primary) hypertension Complete Blood Count Auto Diff Today D70.8 - Other neutropenia, E78.9 - Disorder of lipoprotein metabolism, unspecified, I10 - Essential (primary) hypertension
[2024-04-30 08:55] VITALS: BP 128/82; PULSE 72; O2SAT 98; BMI 32.6
--- OUTSIDE RECORDS SUMMARY | 2024-04-30 09:10 | XMS_ITS | Clinical Summary ---
Author Organization [facility] Address [address] [place] [address] Care Team Providers Care Plate Filler Name Role Phone Kalin Wyatt MD Primary Care Provider [phone] Allergies Active Allergy Reactions Criticality Noted Date [...] age to complete this topic Care Teams Plate Filler Relationship Specialty Start Date End Date Kalin Wyatt MD [address] [place] [id number] PCP - General Internal Medicine 07/20/21
== END 2024-04-30 09:32 | disposition home or self-care (01) ==
PROVIDERS: PCP Internal Medicine; Visit Provider Internal Medicine
DX: I10 Essential (primary) hypertension (principal); E78.9 Disorder of lipoprotein metabolism, unspecified; D70.8 Other neutropenia; G25.0 Essential tremor; E03.8 Other specified hypothyroidism; E66.09 Other obesity due to excess calories; Z68.32 Body mass index [BMI] 32.0-32.9, adult; J02.9 Acute pharyngitis, unspecified; M25.60 Stiffness of unspecified joint, not elsewhere classified

== ENCOUNTER → 2024-04-30 08:50 | Outpatient (BNVA) | payer MEDICARE, SELFPAY | PROVIDERS: PCP Internal Medicine; Visit Provider Internal Medicine | DX: I10 Essential (primary) hypertension (principal); E78.9 Disorder of lipoprotein metabolism, unspecified; G25.0 Essential tremor; E03.8 Other specified hypothyroidism; E66.09 Other obesity due to excess calories; Z68.32 Body mass index [BMI] 32.0-32.9, adult; J02.9 Acute pharyngitis, unspecified; M25.60 Stiffness of unspecified joint, not elsewhere classified | CPT/HCPCS: 96127; 99212 ==

== ENCOUNTER 2024-05-09 10:28 | Outpatient (REF) | payer MEDICARE, SELFPAY ==
--- OUTSIDE RECORDS SUMMARY | 2024-05-09 10:53 | XMS_ITS | Clinical Summary ---
Author Organization [facility] Address [address] [place] [address] Care Team Providers Care Cook Chef Name Role Phone Kalin Wyatt MD Primary Care Provider [phone] Allergies Active Allergy Reactions Criticality Noted Date [...] age to complete this topic Care Teams Cook Chef Relationship Specialty Start Date End Date Kalin Wyatt MD [address] [place] [id number] PCP - General Internal Medicine 07/20/21
[2024-05-09 13:50] LABS: Influenza A PCR NEGATIVE (Negative); Influenza B PCR NEGATIVE (Negative); Resp Syncy Virus RNA Qual PCR NEGATIVE (Negative); SARS COV2 PCR INHOUSE NEGATIVE (Negative)
== END 2024-05-09 10:29 | disposition home or self-care (01) ==
LOC: HO.LAB 10:28
PROVIDERS: PCP Internal Medicine; Visit Provider Nurse Practitioner Family
DX: J06.9 Acute upper respiratory infection, unspecified (principal); R05.1 Acute cough
CPT/HCPCS: 0241U; 99212

== ENCOUNTER 2024-08-27 07:33 | Outpatient (REF) | payer MEDICARE, SELFPAY ==
--- OUTSIDE RECORDS SUMMARY | 2024-08-27 07:35 | XMS_ITS | Clinical Summary ---
Author Organization [facility] Address [address] [place] [address] Care Team Providers Care Medical Practice Administrator Name Role Phone Kalin Wyatt MD Primary Care Provider [phone] Allergies Active Allergy Reactions Criticality Noted Date [...] age to complete this topic Care Teams Medical Practice Administrator Relationship Specialty Start Date End Date Kalin Wyatt MD [address] [place] [id number] PCP - General Internal Medicine 07/20/21
[2024-08-27 10:03] LABS: MANUAL DIFF FLAG NO
[2024-08-27 10:17] LABS: Basophils Percent Auto 1.1 % (0-2); Eosinophils Absolute Auto 0.1 X10*3/uL (0.0-0.4); Eosinophils Percent Auto 2.9 % (0-4); Hematocrit 42.6 % (37.0-47.0); Hemoglobin 14.4 g/dl (12.0-16.0); Imm Gran Abs Auto 0.01 X10*3/uL (0.00-0.03); Imm Gran Pct Auto 0.3 % (0.0-0.4); Lymphocytes Absolute Auto 1.1 X10*3/uL (1.2-4.9); Mean Corpuscular HGB Conc 33.8 g/dl (31.0-35.0); Mean Corpuscular Hemoglobin 30.9 pg (27.0-33.0); Mean Corpuscular Volume 91.4 fL (80.0-98.0); Mean Platelet Volume 11.1 fL (9.4-12.3); Monocytes Absolute Auto 0.4 X10*3/uL (0.1-1.2); Monocytes Percent Auto 10.3 % (2-11); Neutrophils Absolute Auto 1.9 x10*3/uL (2.0-8.3); Neutrophils Percent Auto 53.4 % (45-73); Platelet Count 169 X10*3/uL (160-400); Red Blood Count 4.66 X10*6/uL (4.20-5.50); Red Cell Distribution Width 12.7 % (11.0-16.0); White Blood Count 3.5 X10*3/uL (4.8-10.8)
[2024-08-27 10:36] LABS: Alanine Aminotransferase 30 U/L (0-31); Alkaline Phosphatase 95 U/L (39-117); Anion Gap 12 (12-20); Aspartate Amino Transferase 33 U/L (5-31); Bilirubin Total 0.8 mg/dL (0.0-1.0); Blood Urea Nitrogen 17 mg/dL (9-16); Calcium 9.5 mg/dL (8.4-10.2); Carbon Dioxide 25 mmol/L (22-29); Chloride 110 mmol/L (96-108); Estimated Glomerular Filt Rate > 60; Glucose Random 88 mg/dL (60-115); Potassium 4.7 mmol/L (3.3-5.1); Sodium 142 mmol/L (135-145); Total Protein 6.7 g/dL (6.5-8.0)
== END 2024-08-27 07:34 | disposition home or self-care (01) ==
LOC: HO.HMGCLDS 07:33
PROVIDERS: PCP Internal Medicine; Visit Provider Internal Medicine
DX: I10 Essential (primary) hypertension (principal); E78.9 Disorder of lipoprotein metabolism, unspecified; D70.8 Other neutropenia
CPT/HCPCS: 36415; 80053; 85025

== ENCOUNTER 2024-08-30 08:00 | Outpatient (AMB) | payer MEDICARE, SELFPAY ==
--- OUTSIDE RECORDS SUMMARY | 2024-08-30 08:02 | XMS_ITS | Clinical Summary ---
Author Organization [facility] Address [address] [place] [address] Care Team Providers Care Education Administrative Assistant Name Role Phone Kalin Wyatt MD Primary Care Provider [phone] Allergies Active Allergy Reactions Criticality Noted Date [...] age to complete this topic Care Teams Education Administrative Assistant Relationship Specialty Start Date End Date Kalin Wyatt MD [address] [place] [id number] PCP - General Internal Medicine 07/20/21
--- NOTE | 2024-08-30 08:42 | MHC.PC.OV ---
Intake Visit Reasons: 4 months f/up Allergies penicillin V Allergy (Unknown, Verified 05/21/24 08:49) rash hives swelling Penicillins Allergy (Unknown, Verified 05/21/24 08:49) rash hives swelling Sulfa (Sulfonamide Antibiotics) Allergy (Unknown, Verified 05/21/24 08:49) unknown-childhood Erythromycin Adverse Reaction (Unknown, Uncoded 05/21/24 08:49) GI upset Medication List - Last Reconciled 08/30/24 by Kalin Wyatt MD atorvastatin 20 mg PO BEDTIME 90 days calcium carbonate 600 mg PO DAILY levothyroxine 75 mcg PO QAM lisinopril 40 mg PO DAILY 90 days Tobacco use date assessed: 04/30/24 Dental Screening Dental Screen Date: 04/30/24 HPI 4 months f/up HPI Details History - The patient is a 73-year-old female presenting for a discussion of overall health, medication refills, and management of chronic conditions. - The patient reports good overall health and has recently returned from a trip where she completed a physically demanding hike of approximately 700 feet elevation change, indicating a high level of physical activity for her age group. - The patient expresses satisfaction with the management of her essential hypertension, with recent readings including a low of 110/67 mmHg and typical readings around 128-134/70 mmHg. - The patient is currently managed on atorvastatin for hyperlipidemia and levothyroxine for hypothyroidism. While thyroid function tests were not conducted at the most recent assessment, the patient reports feeling well with stable function in past assessments. - The patient mentions seeing a electrician helper powerhouse for observation of her white blood cell count, which has remained stable. - The patient is planning an upcoming trip to [facility] in December and inquires about malaria prophylaxis, specifically mentioning previous use of Malarone and doxycycline, aware that it has impacted her liver function temporarily in the past, but resolved spontaneously. - The patient reports no specific issues with her liver or kidney functions and feels generally well. - Recent family history includes her daughter having a complicated childbirth due to placenta accreta, but both mother and baby are currently reported to be doing well. Problem List - Essential Hypertension - Hyperlipidemia - Hypothyroidism - Observation of mildly low white blood cell count by hematology - Request for malaria prophylaxis for upcoming travel Patient Instructions - Begin taking prescribed malaria medication before traveling to [facility]. - Monitor blood pressure regularly to ensure it remains within the target range. - Continue taking all prescribed medications as directed. - Stay physically active and report any new symptoms or health changes promptly. - Follow up as scheduled in January or sooner if new symptoms arise. Review of Systems - General: No fever no chills - Neurological: No headaches no dizziness - Ear nose throat: No sore throat no hearing difficulty no ear pain - Cardiovascular: No syncope, no chest pain, no palpitations - Gastrointestinal: No nausea vomiting or diarrhea - Endocrine: No polyuria polydipsia no heat intolerance - Genitourinary: No dysuria , no blood in urine [facility] Medical History Cough Acute respiratory disease Cataracts, bilateral Lipid disorder Hypertension, essential Other specified hypothyroidism Surgical History History of appendectomy Family History Father Pancreatic cancer Myocardial infarction Mother Alzheimer's disease Son Obesity Daughter Migraine Maternal Grandmother No problems noted. Maternal Grandfather No problems noted. Paternal Grandfather No problems noted. Paternal Grandmother No problems noted. Sister No problems noted. 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 Cognitive needs: No Hearing needs: No Vision needs: Yes Questionnaire Thrive Questionnaire Date Thrive assessed: 04/30/24 I am a: Patient What is your living situation today?: I have a steady place to live Within the past 12 months, did the food you bought not last and you didn't have the money to get more?: Never true Within the past 12 months, did you worry whether your food would run out before you got money to buy more?: Never true Do you have trouble paying for medicines?: No Do you have trouble getting transportation to medical appointments?: No Do you have trouble paying your heating and electricity bill?: No Do you have trouble taking care of your child, family member or friend?: No Do you have trouble with day-to-day activities such as bathing, preparing meals, shopping, managing finances, etc.?: No Are you currently unemployed and looking for a job?: No Are you interested in more education?: No Please select the resources that you would like help with: None Currently or been in a relationship where the following occur: No concerns reported THRIVE Score: 0 CECELIA-7 AMB Questionnaire CECELIA-7 Date CECELIA - 7 assessed: 04/30/24 Source: Developed by Drs. Arthur Hassan, Nadia Peralta, Mikey Howard and colleagues, with an educational hannah from [employer]. Physical exam (Primary Care) Tobacco/Smoking Status: Tobacco use Status Tobacco use date assessed 04/30/24 08/30/24 08:42 Patient Tobacco Use Status Never used Tobacco 08/30/24 08:42 e-Cigarette/Vaping Use Never Used 08/30/24 08:42 Thrive Assessment: Date of Thrive Assessment Date Thrive assessed 04/30/24 08/30/24 08:42 Currently or been in a relationship where the following occur: No concerns reported Telehealth Telehealth Telehealth Platform: [facility] Location of provider rendering services: practice address Location of patient: address on file Patient Identification confirmed using: Name, : Yes Telehealth method: video Patient verbally consented to treatment: Yes Patient verbally consented to billing insurance company: Yes Patient informed of any privacy concerns related to visit: Yes Minutes spent on Phone/Video with Pt.: 30 Coding Level of Care Code Tele Est Pt Level 4 (03853) Diagnoses Hypertension, essential I10 Other specified hypothyroidism E03.8 Lipid disorder E78.9 Other neutropenia D70.8 Neutropenia type: other Need for malaria prophylaxis Z29.89 Stress due to illness of family member Z63.79 Assessment & Plan Assessment & Plan (1) Hypertension, essential: Code(s): I10 - Essential (primary) hypertension Category: Medical (2) Other specified hypothyroidism: Code(s): E03.8 - Other specified hypothyroidism Category: Medical (3) Lipid disorder: Code(s): E78.9 - Disorder of lipoprotein metabolism, unspecified Category: Medical (4) Neutropenia: Code(s): D70.9 - Neutropenia, unspecified Category: Medical Qualifiers: Neutropenia type: other Qualified Code(s): D70.8 - Other neutropenia (5) Need for malaria prophylaxis: Code(s): Z29.89 - Encounter for other specified prophylactic measures Category: Medical (6) Stress due to illness of family member: Code(s): Z63.79 - Other stressful life events affecting family and household Category: Social Hx Plan History - The patient is a 73-year-old female presenting for a discussion of overall health, medication refills, and management of chronic conditions. - The patient reports good overall health and has recently returned from a trip where she completed a physically demanding hike of approximately 700 feet elevation change, indicating a high level of physical activity for her age group. - The patient expresses satisfaction with the management of her essential hypertension, with recent readings including a low of 110/67 mmHg and typical readings around 128-134/70 mmHg. - The patient is currently managed on atorvastatin for hyperlipidemia and levothyroxine for hypothyroidism. While thyroid function tests were not conducted at the most recent assessment, the patient reports feeling well with stable function in past assessments. - The patient mentions seeing a electrician helper powerhouse for observation of her white blood cell count, which has remained stable. - The patient is planning an upcoming trip to [facility] in December and inquires about malaria prophylaxis, specifically mentioning previous use of Malarone and doxycycline, aware that it has impacted her liver function temporarily in the past, but resolved spontaneously. - The patient reports no specific issues with her liver or kidney functions and feels generally well. - Recent family history includes her daughter having a complicated childbirth due to placenta accreta, but both mother and baby are currently reported to be doing well. Problem List - Essential Hypertension - Hyperlipidemia - Hypothyroidism - Observation of mildly low white blood cell count by hematology - Request for malaria prophylaxis for upcoming travel Patient Instructions - Begin taking prescribed malaria medication before traveling to [facility]. - Monitor blood pressure regularly to ensure it remains within the target range. - Continue taking all prescribed medications as directed. - Stay physically active and report any new symptoms or health changes promptly. - Follow up as scheduled in January or sooner if new symptoms arise. Orders: Orders Comprehensive Stout. Panel Fast 3 Months D70.8 - Other neutropenia, E03.8 - Other specified hypothyroidism, E78.9 - Disorder of lipoprotein metabolism, unspecified, I10 - Essential (primary) hypertension, R79.89 - Other specified abnormal findings of blood chemistry Complete Blood Count Auto Diff 3 Months D70.8 - Other neutropenia, E03.8 - Other specified hypothyroidism, E78.9 - Disorder of lipoprotein metabolism, unspecified, I10 - Essential (primary) hypertension, R79.89 - Other specified abnormal findings of blood chemistry Lipid Panel 3 Months D70.8 - Other neutropenia, E03.8 - Other specified hypothyroidism, E78.9 - Disorder of lipoprotein metabolism, unspecified, I10 - Essential (primary) hypertension, R79.89 - Other specified abnormal findings of blood chemistry TSH reflex Free T4 3 Months D70.8 - Other neutropenia, E03.8 - Other specified hypothyroidism, E78.9 - Disorder of lipoprotein metabolism, unspecified, I10 - Essential (primary) hypertension, R79.89 - Other specified abnormal findings of blood chemistry Medications: New atovaquone-proguanil 250-100 mg (Malarone) take 1 tab once daily x1 day before exposure, during time in area, and x7 days after leaving area PO 30 tabs 0RF doxycycline hyclate 100 mg PO DAILY 30 caps 0RF
== END 2024-08-30 09:14 | disposition home or self-care (01) ==
LOC: HO.HMCC 08:00
PROVIDERS: PCP Internal Medicine; Visit Provider Internal Medicine
DX: I10 Essential (primary) hypertension (principal); E03.8 Other specified hypothyroidism; E78.9 Disorder of lipoprotein metabolism, unspecified; D70.8 Other neutropenia; Z29.89 Encounter for other specified prophylactic measures; Z63.79 Other stressful life events affecting family and household

== ENCOUNTER → 2024-08-30 08:00 | Outpatient (BNVA) | payer MEDICARE, SELFPAY | PROVIDERS: PCP Internal Medicine; Visit Provider Internal Medicine | DX: I10 Essential (primary) hypertension (principal); E78.9 Disorder of lipoprotein metabolism, unspecified; D70.8 Other neutropenia; Z13.89 Encounter for screening for other disorder ==

== ENCOUNTER 2025-01-21 07:16 | Outpatient (REF) | payer MEDICARE, SELFPAY ==
--- OUTSIDE RECORDS SUMMARY | 2025-01-21 07:19 | XMS_ITS | Clinical Summary ---
Author Organization [facility] Address [address] [place] [address] Care Team Providers Care Shank Archer Name Role Phone Kalin Wyatt MD Primary Care Provider [phone] Allergies Active Allergy Reactions Criticality Noted Date [...] 1 - PCV) 2017 Influenza Vaccine (#1) 2024 RSV Adult > 60+ Yrs or Pregn ant (1 - 1-dose 75+ series) 12/25/2027 Hepatitis B Vaccines Aged Out No long er eligible based on patient's age to complete this topic RSV Ped < 20 months Aged Out No longe r eligible based on patient's age to complete this topic Care Teams Shank Archer Relationship Specialty Start Date End Date Kalin Wyatt MD [address] [place] [id number] PCP - General Internal Medicine 07/20/21
[2025-01-21 10:40] LABS: MANUAL DIFF FLAG NO
[2025-01-21 10:56] LABS: Hematocrit 42.9 % (37.0-47.0); Hemoglobin 13.9 g/dl (12.0-16.0); Imm Gran Abs Auto 0.00 X10*3/uL (0.00-0.03); Imm Gran Pct Auto 0.0 % (0.0-0.4); Lymphocytes Absolute Auto 1.1 X10*3/uL (1.2-4.9); Mean Corpuscular HGB Conc 32.4 g/dl (31.0-35.0); Mean Corpuscular Hemoglobin 30.1 pg (27.0-33.0); Mean Corpuscular Volume 92.9 fL (80.0-98.0); NRBC Abs Auto 0.000 X10*3/uL (0.0-0.012); NRBC Pct Auto 0.0 /100WBC (0.0-0.2); Platelet Count 185 X10*3/uL (160-400); Red Blood Count 4.62 X10*6/uL (4.20-5.50); White Blood Count 3.4 X10*3/uL (4.8-10.8)
[2025-01-21 12:41] LABS: Alanine Aminotransferase 50 U/L (0-31); Albumin Level 4.0 g/dL (3.5-5.0); Alkaline Phosphatase 129 U/L (39-117); Anion Gap 10 (12-20); Aspartate Amino Transferase 35 U/L (5-31); Blood Urea Nitrogen 16 mg/dL (9-16); Calcium 9.5 mg/dL (8.4-10.2); Carbon Dioxide 28 mmol/L (22-29); Chloride 109 mmol/L (96-108); Cholesterol 173 mg/dL (<200); Estimated Glomerular Filt Rate > 60; HDL Cholesterol 74 mg/dL (>40); Potassium 5.0 mmol/L (3.3-5.1); Sodium 142 mmol/L (135-145); Total Protein 6.8 g/dL (6.5-8.0); Triglycerides 84 mg/dL (<150)
[2025-01-21 15:03] LABS: Free T4 (Free Thyroxine) 1.07 ng/dL (0.71-1.85)
== END 2025-01-21 07:17 | disposition home or self-care (01) ==
LOC: HO.HMGCLDS 07:16
PROVIDERS: PCP Internal Medicine; Visit Provider Internal Medicine
DX: I10 Essential (primary) hypertension (principal); E78.9 Disorder of lipoprotein metabolism, unspecified; R79.89 Other specified abnormal findings of blood chemistry; E03.8 Other specified hypothyroidism; D70.8 Other neutropenia
CPT/HCPCS: 36415; 80053; 80061; 84439; 84443; 85025

== ENCOUNTER 2025-01-28 10:04 | Outpatient (AMB) | payer MEDICARE, SELFPAY ==
--- NOTE | 2025-01-28 10:03 | A.OFFVIS_ITS ---
Intake Vital Signs 01/28/25 10:07 Height 5 ft 3 in Weight 185 lb 4 oz BMI 32.8 BP 138/90 H Blood Pressure Location Lt brachial Position Sitting Respiration 16 Pulse 66 Pulse Source Pulse Oximeter Pulse Oximetry (%) 100 Oxygen Delivery Method Room Air Intake Visit Reasons: SWV G0439 Allergies penicillin V Allergy (Unknown, Verified 11/18/24 08:23) rash hives swelling Penicillins Allergy (Unknown, Verified 11/18/24 08:23) rash hives swelling Sulfa (Sulfonamide Antibiotics) Allergy (Unknown, Verified 11/18/24 08:23) unknown-childhood Erythromycin Adverse Reaction (Unknown, Uncoded 11/18/24 08:23) GI upset Medication List - Last Reconciled 01/28/25 by Kalin Wyatt MD atorvastatin 20 mg PO BEDTIME 90 days atovaquone-proguanil 250-100 mg (Malarone) take 1 tab once daily x1 day before exposure, during time in area, and x7 days after leaving area PO calcium carbonate 600 mg PO DAILY doxycycline hyclate 100 mg PO DAILY levothyroxine 75 mcg PO QAM lisinopril 40 mg PO DAILY 90 days HPI SWV G0439 HPI Details History of Present Illness The patient is a 74-year-old female presenting for evaluation of right knee pain and to review recent lab results. Right Knee Sprain: - The patient twisted her right knee abo ut two weeks ago while stepping up to get into a canoe. - She initially could not straighten her leg but has experienced improvement with ice and rest. - Currently, she experiences pain with t wisting motions, but her range of motion has otherwise returned. - She has been taking one ibuprofen junior y and uses a knee brace when active. Elevated liver enzymes: - Recent lab results showed an elevation in her liver enzymes. - The patient suspects this is related t o recently finishing anti-malarial medication, noting that her enzymes were also high after a trip to [place] last year and subsequently normalized. [place] Hypertension: - The patient's blood pressure is elevat ed in the clinic. - She monitors her blood pressure at [facility] and reports that her readings are fine, which she documents in a logbook. - She acknowledges getting nervous befor e clinic visits. Abnormal Thyroid Test: - A recent thyroid test was noted to be slightly abnormal. Preventative Care: - The patient reports being up to date o n her immunizations, having received the RSV vaccine on November 24 and the flu and COVID vaccines on January 05. - She reports that she is due for a mamm ogram. Social History: - The patient is active and goes for [employer], including interval walking. - She travels frequently, with recent tr ips to the [place] and past trips to [place]. - She has upcoming travel planned for [facility] and [place]. Problem List - Right knee sprain - Elevated liver enzymes - Abnormal thyroid function - White coat hypertension - Preventative care: Immunizations up to date - Preventative care: Mammogram screening due Plan - The patient's right knee pain is asses sed as a sprain, and since it is improving, she will continue to monitor it. - If the knee pain is not better after h er upcoming trip, a referral for physical therapy will be provided. - She may continue taking ibuprofen as n eeded for pain, but she was advised it can potentially elevate blood pressure. - Lab tests for liver enzymes and thyroi d function will be repeated in approximately two months to ensure they normalize. - No changes will be made to her thyroid medication at this time. - The patient will continue to monitor h er blood pressure at home and will bring her machine to the next appointment for calibration. - A referral for a mammogram will be ord ered. - The patient is scheduled to follow up in April to review labs and re- evaluate her knee. Review of Systems - General: No fever no chills - Neurological: No headaches no dizziness - Ear nose throat: No sore throat no hearing difficulty no ear pain - Cardiovascular: No syncope, no chest pain, no palpitations - Gastrointestinal: No nausea vomiting or diarrhea - Endocrine: No polyuria polydipsia no heat intolerance - Genitourinary: No dysuria , no blood in urine Physical Exam General: No acute distress HEENT: No acute findings Neck: Supple Respiratory system: Able to talk in full sentences, no audible wheeze Cardiovascular: S1-S2 regular in rate and rhythm Gastrointestinal: No pain Extremities: Right knee sprain, mild pain noted range of motion intact no swelling 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 Vital signs reviewed Alcohol tobacco drug use reviewed and discussed . MMSE completed . ? Fall risk: ?Assessed Fall history: ?None Have you had any falls with injury in the past year?? No Have you had 2 or more falls in the past year?? No Fall risk assessment completed Home safety discussed with the patient Functional ability assessed and discussed and documented Activities of daily living reviewed and appropriate actions taken . HRA filled out by the patient and reviewed by provider and scanned . Appropriate written screening schedule established . Any health advise needed provided . Advance care planning discussed with the patient , necessary paperwork filled Examination IPPE/AWE: Balance intact Romberg intact Tandem walk intact walk-in turn intact rise from sit to stand intact . ?Hearing ?whisper test pass . Medication list reviewed, patient is stable on medications All other providers patient is seeing discussed and noted . [facility] Medical History Cough Acute respiratory disease Cataracts, bilateral Lipid disorder Hypertension, essential Other specified hypothyroidism Surgical History History of appendectomy Family History Father Pancreatic cancer Myocardial infarction Mother Alzheimer's disease Son Obesity Daughter Migraine Maternal Grandmother No problems noted. Maternal Grandfather No problems noted. Paternal Grandfather No problems noted. Paternal Grandmother No problems noted. Sister No problems noted. 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 Cognitive needs: No Hearing needs: No Vision needs: Yes Questionnaire Medicare Wellness Checkup [age] What gender do you identify with?: female During the past 4 weeks, how much have you been bothered by emotional problems such as feeling anxious, depressed, irritable, sad or downhearted, and blue?: not at all During the past 4 weeks, has your physical & emotional health limited your social activities with family, friends, neighbors, or groups?: not at all During the past 4 weeks, how much bodily pain have you generally had?: mild pain (Knee injury) During the past 4 weeks, was someone available to help you if you needed & wanted help?: yes, as much as I wanted During the past 4 weeks, what was the hardest physical activity you could do for at least 2 minutes?: heavy Can you get to places out of walking distance without help? (For eg., can you travel alone on buses, taxis or drive your car?): Yes Can you go shopping for groceries or clothes without someone's help?: Yes Can you prepare your own meals?: Yes Can you do your housework without help?: Yes Because of any health problems, do you need the help of another person with your personal care needs such as eating, bathing, dressing or getting around the house?: No Can you handle your own money without help?: Yes During the past 4 weeks, how would you rate your health in general?: very good During the past 4 weeks how have things been going for you?: very well; could hardly better Are you having difficulties driving your car?: no Do you always fasten your seat belt when you are in a car?: yes, usually During past 4 weeks, have you been bothered by the following: never: Falling or dizzy when standing up, Sexual problems?, Trouble eating well?, Teeth or denture problems?, Problems using the telephone? and Tiredness or fatigue? Have you fallen 2 or more times in the past year?: No Are you afraid of falling?: Yes Are you a smoker?: no During the past 4 weeks, how many drinks of wine, beer, or other alcoholic beverages did you have?: 1 drink or less per week Do you exercise for about 20 minutes 3 or more times a week?: yes, most of the time Have you been given information to help with the following?: no: Hazards in your house that might hurt you? and no: Keeping track of your medications? How often do you have trouble taking medicines the way you have been told to take them?: I always take medicine as prescribed How confident are you that you can control & manage most of your health problems?: very confident What is your race?: White Mini Mental State Exam (MMSE) Orientation What is the (year) (season) (date) (day) (month)?: year, season, date, day and month Where are we (state) (county) (town or city) (hospital) (floor)?: state, county, town or city, hospital/clinic and floor Score Score: 10 Activity of Daily Living Bathing - sponge bath, tub bath or shower: receives no assistance (gets in/out by self, if usual bathing means Dressing - getting clothes from closets & drawers, including inner/outer garments & fasteners.: gets clothes & gets completely dressed without help Toileting - going to the 'toilet room' for urine/bowel elimination & cleaning self/arranging clothes: goes to toilet room, cleans self, arranges clothes without help Transfer: moves in & out of bed and chair without help (may use support object) Continence: controls urination/bowel movements completely by self Feeding: feeds self without help Total Score: 0 Information obtained from: patient Using telephone: independent Traveling: independent Shopping: independent Preparing meals: independent Housework: independent Taking medicine: independent Managing money: independent PHQ-9 Over the last 2 weeks, how often have you been bothered by any of the following problems? 1. Little interest or pleasure in doing things: not at all 2. Feeling down, depressed, or hopeless: not at all 3. Trouble falling or staying asleep, or sleeping too much: not at all 4. Feeling tired or having little energy: not at all 5. Poor appetite or overeating: not at all 6. Feeling bad about yourself - or that you are a failure or have let yourself or your family down: not at all 7. Trouble concentrating on things, such as reading the newspaper or watching television: not at all 8. Moving or speaking so slowly that other people could have noticed. Or the opposite - being so fidgety or restless that you have been moving around a lot more than usual: not at all 9. Thoughts that you would be better off or of hurting yourself in some way: not at all Total score: 0 Depression Screening Interpretation: Negative Depression Screening Done: Yes 35142 - PHQ-9 Billing: Yes Source: Developed by DrsKevan Hassan, Nadia Peralta, Mikey Howard and colleagues, with an educational hannah from [employer]. Physical Exam Vital Signs: Last Vital Signs Pulse 66 01/28/25 10:07 Resp 16 01/28/25 10:07 BP 138/90 H 01/28/25 10:07 Pulse Ox 100 01/28/25 10:07 Oxygen Delivery Method Room Air 01/28/25 10:07 BMI result Body Mass Index 32.8 Assessment & Plan Assessment & Plan (1) Medicare annual wellness visit, subsequent: Code(s): Z00.00 - Encounter for general adult medical examination without abnormal findings (2) Knee pain, right: Code(s): M25.561 - Pain in right knee Qualifiers: Chronicity: acute Qualified Code(s): M25.561 - Pain in right knee (3) Right knee sprain: Code(s): S83.91XA - Sprain of unspecified site of right knee, initial encounter Qualifiers: Encounter type: initial encounter Involved ligament of knee: unspecified ligament Qualified Code(s): S83.91XA - Sprain of unspecified site of right knee, initial encounter (4) LFT elevation: Code(s): R79.89 - Other specified abnormal findings of blood chemistry (5) Hypertension, essential: Code(s): I10 - Essential (primary) hypertension (6) Other specified hypothyroidism: Code(s): E03.8 - Other specified hypothyroidism (7) Lipid disorder: Code(s): E78.9 - Disorder of lipoprotein metabolism, unspecified (8) Neutropenia: Code(s): D70.9 - Neutropenia, unspecified Qualifiers: Neutropenia type: other Qualified Code(s): D70.8 - Other neutropenia (9) Instability of right knee joint: Code(s): M25.361 - Other instability, right knee Plan Right Knee Sprain: - The patient twisted her right knee about two weeks ago while stepping up to get into a canoe. - She initially could not straighten her leg but has experienced improvement with ice and rest. - Currently, she experiences pain with twisting motions, but her range of motion has otherwise returned. - She has been taking one ibuprofen daily and uses a knee brace when active. Elevated liver enzymes: - Recent lab results showed an elevation in her liver enzymes. - The patient suspects this is related to recently finishing anti-malarial medication, noting that her enzymes were also high after a trip to [place] last year and subsequently normalized. [place] Hypertension: - The patient's blood pressure is elevated in the clinic. - She monitors her blood pressure at home and reports that her readings are fine, which she documents in a logbook. - She acknowledges getting nervous before clinic visits. Abnormal Thyroid Test: - A recent thyroid test was noted to be slightly abnormal. Preventative Care: - The patient reports being up to date on her immunizations, having received the RSV vaccine on November 24 and the flu and COVID vaccines on January 05. - She reports that she is due for a mammogram. Social History: - The patient is active and goes for walks, including interval walking. - She travels frequently, with recent trips to the [facility] and past trips to [facility]. - She has upcoming travel planned for [place] and [facility]. Problem List - Right knee sprain - Elevated liver enzymes - Abnormal thyroid function - [place] hypertension - Preventative care: Immunizations up to date - Preventative care: Mammogram screening due Plan - The patient's right knee pain is assessed as a sprain, and since it is improving, she will continue to monitor it. - If the knee pain is not better after her upcoming trip, a referral for physical therapy will be provided. - She may continue taking ibuprofen as needed for pain, but she was advised it can potentially elevate blood pressure. - Lab tests for liver enzymes and thyroid function will be repeated in approximately two months to ensure they normalize. - No changes will be made to her thyroid medication at this time. - The patient will continue to monitor her blood pressure at home and will bring her machine to the next appointment for calibration. - A referral for a mammogram will be ordered. - The patient is scheduled to follow up in April to review labs and re- evaluate her knee. Orders: Orders Complete Blood Count Auto Diff 2 Months E03.8 - Other specified hypothyroidism, R79.89 - Other specified abnormal findings of blood chemistry Comprehensive Met. Panel 2 Months E03.8 - Other specified hypothyroidism, R79.89 - Other specified abnormal findings of blood chemistry TSH reflex Free T4 2 Months E03.8 - Other specified hypothyroidism, R79.89 - Other specified abnormal findings of blood chemistry MM tomosynthesis screening BI Today Z12.31 - Encounter for screening mammogram for malignant neoplasm of breast Quality Reporting (2019) Depression/Bipolar (159/160/161/177) PHQ-9: Total score: 0 Coding Level of Care Code Medicare Subsequent (G0439) Est Pt Level 4 (85993) Diagnoses Medicare annual wellness visit, subsequent Z00.00 Acute pain of right knee M25.561 Chronicity: acute Sprain of right knee, unspecified ligament, initial encounter S83.91XA Encounter type: initial encounter Involved ligament of knee: unspecified ligament LFT elevation R79.89 Hypertension, essential I10 Other specified hypothyroidism E03.8 Lipid disorder E78.9 Other neutropenia D70.8 Neutropenia type: other Instability of right knee joint M25.361 CPT Codes Advance Care Planning - Advance Care Planning discussion: On file, no changes ([id number]) Advance Care Planning - Time spent: 1-15 minutes, on File ([id number]) Additional Codes PHQ-9 - 10187 - PHQ-9 Billing: Yes ([id number]) Advance Care Planning Advance Care Planning discussion: On file, no changes Forms completed: Health Care Proxy and MOLST Time spent: 1-15 minutes, on File
[2025-01-28 10:07] VITALS: BP 138/90; PULSE 66; RESP 16; O2SAT 100; BMI 32.8
== END 2025-01-28 11:24 | disposition home or self-care (01) ==
LOC: HO.HMCC 10:05
PROVIDERS: PCP Internal Medicine; Visit Provider Internal Medicine
DX: Z00.00 Encounter for general adult medical examination without abnormal findings (principal); M25.561 Pain in right knee; S83.91XA Sprain of unspecified site of right knee, initial encounter; R79.89 Other specified abnormal findings of blood chemistry; I10 Essential (primary) hypertension; E03.8 Other specified hypothyroidism; E78.9 Disorder of lipoprotein metabolism, unspecified; D70.8 Other neutropenia; M25.361 Other instability, right knee

== ENCOUNTER → 2025-01-28 10:04 | Outpatient (BNVA) | payer MEDICARE, SELFPAY | PROVIDERS: PCP Internal Medicine; Visit Provider Internal Medicine | DX: Z00.01 Encounter for general adult medical examination with abnormal findings (principal); M25.561 Pain in right knee; S83.91XA Sprain of unspecified site of right knee, initial encounter; R79.89 Other specified abnormal findings of blood chemistry; I10 Essential (primary) hypertension; E03.8 Other specified hypothyroidism; D70.8 Other neutropenia; M25.361 Other instability, right knee; Z13.31 Encounter for screening for depression; X50.1XXA Overexertion from prolonged static or awkward postures, initial encounter; Y93.9 Activity, unspecified; Y92.9 Unspecified place or not applicable; Y99.9 Unspecified external cause status | CPT/HCPCS: 96127 ==